=== PATIENT | female | born 1980 | race Caucasian/White ===

== ENCOUNTER → 2019-05-27 09:38 | Outpatient (BNVA) | payer MEDICAID, SELFPAY | PROVIDERS: Visit Provider Nurse Practitioner | DX: F31.2 Bipolar disorder, current episode manic severe with psychotic features (principal); F43.12 Post-traumatic stress disorder, chronic; F12.21 Cannabis dependence, in remission; F15.20 Other stimulant dependence, uncomplicated | CPT/HCPCS: 99214 ==

== ENCOUNTER 2019-09-09 18:33 | Emergency (ER) | payer MEDICAID, SELFPAY ==
[2019-09-09 18:40] VITALS: BMI 38.0
--- NOTE | 2019-09-09 18:42 | W.ED.FALL ---
HPI - Fall General: Chief Complaint: Fall Stated Complaint: R HIP INJURY/FALL Time Seen by Provider: 09/09/19 18:41 History of Present Illness: HPI Narrative: 39-year-old female comes to the emergency room after a fall yesterday injured her right hip and hyperextended her right knee is a mechanical fall at home she stumbled on some carpet. She did not strike her head did not have any other injuries and there was no loss of consciousness. She is had problems with the knee and hip in the past and is seen Dr. Castrejon she tells me that several years ago she had an MRI but denied any kind of surgical intervention. She reports having chronic pain for which he uses marijuana she said she smoked a half a joint of marijuana today did not seem to help she does not take another and any other anti-inflammatories. She has been weightbearing on the joints since this happened a day ago. MD complaint: fall Onset (ago): day(s) (1) Fall from: standing Fall witnessed: no Place fall occurred: home Loss of consciousness: None Prolonged down time: no Symptoms prior to fall: none Context: tripped/slipped Location of injury - extremities: Right: thigh (Right hip) and knee Severity: moderate Associated symptoms-after fall: Reports no associated symptoms; Denies abdominal pain or chest pain Review of Systems Const: Denies: fever(s), chills, body aches, change in appetite, fatigue or malaise ENMT: Denies: throat pain, ear or mastoid pain, nasal discharge or nasal congestion Card: Denies: chest pain, edema, dyspnea on exertion or orthopnea Resp: Denies: dyspnea, productive cough or non-productive cough GI: Denies: abdominal pain, nausea, vomiting, hematemesis, coffee ground emesis, diarrhea, constipation, bloating, hematochezia or melena : Denies: flank pain, difficulty voiding, dysuria, urinary frequency or urinary urgency Skin/Breast: Denies: rash or pruritus PFS ED PFSH: Medical History Bipolar disorder with psychotic features Bipolar disorder, current episode manic severe with psychotic features Cannabis dependence, in remission Greater trochanteric bursitis of both hips Other stimulant dependence, uncomplicated Post-traumatic stress disorder, chronic Social History Smoking and tobacco status: current every day smoker cigarettes Packs smoked per day: 1 Smoking risk assessment/counseling performed?: Yes Tobacco counseling given: counseling >3 minutes Physical Exam Const: COMMON NORMALS: no acute distress GENERAL APPEARANCE: cooperative and comfortable ORIENTATION/CONSCIOUSNESS: Yes awake, Yes oriented to person, Yes oriented to place and Yes oriented to time Neck/C-Spine: COMMON NORMALS: full ROM, no lymphadenopathy, supple and no JVD Lymph: LYMPHATIC: no lymphadenopathy noted and no lymphedema noted Resp: COMMON NORMALS: normal respiratory effort, No retractions, No use of accessory muscles and clear to auscultation bilaterally AUSCULTATION: clear to auscultation bilaterally Cardio: COMMON NORMALS: no JVD, regular rate, regular rhythm and No murmurs present (Cardio) RATE: regular rate RHYTHM: regular rhythm Extremity: COMMON NORMALS: normal to inspection, capillary refill normal, no clubbing, cyanosis or edema, no calf tenderness and no pedal edema NARRATIVE EXTREMITY EXAM: No ligamentous instability or laxity with examination of the right knee mild discomfort internal rotation of the right hip. Neuro: SENSORIUM/ORIENTATION: Yes oriented to person, Yes oriented to place and Yes oriented to time Skin: COMMON NORMALS: no rashes or lesions noted GENERAL SKIN EXAM: no rashes or lesions noted Course Vital Signs: Vital signs: Vital Signs Temperature 98.7 F 09/09/19 18:43 Pulse Rate 110 H 09/09/19 18:43 Respiratory Rate 16 09/09/19 18:43 Blood Pressure 117/92 09/09/19 18:43 Pulse Oximetry 94 09/09/19 18:43 MDM - Fall MDM Narrative: Medical decision making narrative: X-rays reviewed and are unremarkable patient is ambulating on this for a time already now I think will start on an anti-inflammatory have her follow-up with PCP or her primary care doctor if it worsens that she may need further evaluation or advanced imaging although exam now does not seem to indicate that. She expresses understanding she can also ice activity as tolerated. Discharge Plan Discharge Patient Disposition: Home, Self-Care Clinical Impression: Knee sprain Condition: Stable Prescriptions: New diclofenac sodium 75 mg tablet,delayed release (DR/EC) 75 mg PO Q12H PRN (Reason: pain) Qty: 20 RF: 0 No Action paliperidone [Invega] 6 mg tablet extended release 24hr 6 mg PO QAM Qty: 30 RF: 1 paroxetine HCl [Paxil] 10 mg tablet 20 mg PO .HS Qty: 60 RF: 1 nitroglycerin [Nitrostat] 0.4 mg tablet, sublingual 0.4 mg SUBLINGUAL Q5M PRN (Reason: CHEST PAINS) RF: 0 cholecalciferol (vitamin D3) 1,250 mcg (50,000 unit) capsule 50,000 unit PO .once weekly RF: 0 docusate sodium [Colace] 100 mg capsule 100 mg PO DAILY PRN (Reason: Constipation) RF: 0 Discharge Orders: Discharge Order (Routine); Ordered 09/09/19 Ordered By: Bharath Forbes Referrals: Denise Santana MD [Primary Care Provider] - Discharge Diet: Usual diet Discharge Activity: Increase activity as tolerated Activity Restrictions/Additional Instructions: Follow-up with Dr. Castrejon her primary care doctor if pain persists Coding Level of Care Code ED Senior Network Engineer for Chg Fwd Exam Detailed
[2019-09-09 18:43] VITALS: BP 117/92; PULSE 110; RESP 16; TEMP 37.1; O2SAT 94
--- NOTE | 2019-09-09 18:48 | XR_ITS ---
WS: [id number] RIGHT KNEE: 3 VIEW(S) TECHNIQUE: AP, oblique(s) and lateral. HISTORY: fall/pain COMPARISON: 04/09/2010 No fracture or dislocation. No joint space narrowing or osteophytes. No joint effusion. No soft tissue abnormality. XR/XR knee RT 3V* [id number] IMPRESSION: Normal RIGHT knee.
--- NOTE | 2019-09-09 18:48 | XR_ITS ---
WS: [id number] PELVIS AND RIGHT HIP HISTORY: fall/pain COMPARISON: 08/17/2015 Right hip: No acute fracture or dislocation. No interval change in appearance of the hip. No osteobla stic or osteolytic disease. AP pelvis with symmetric appearance of the SI joints and hips. XR/XR hip RT 2-3V wo/w pel* [id number] IMPRESSION: 1. Negative RIGHT hip. 2. Negative pelvis.
[2019-09-09] MEDS: ketorolac 30 mg/mL INJ 60 MG IVP (19:40)
[2019-09-09 19:46] VITALS: BP 124/73
--- NOTE | 2019-09-10 11:10 | DCPLANNER ---
assistant guest services manager had message to schedule a follow up appointment for patient with ortho. assistant guest services manager called the ortho clinic, spoke with Justine, gave clinic patients information. assistant guest services manager was told that patients information would be printed and reviewed. Clinic will call social work case manager and patient with appointment information.
--- NOTE | 2019-09-22 08:00 | DCPLANNER ---
Patient has a follow up appointment scheduled for Friday, September 27, 2019 at 1:[address] Ureña at the ortho clinic. Clinic will call patient with appointment information.
--- NOTE | 2019-10-01 14:29 | DCPLANNER ---
Patients appointment rescheduled for 10.04.19 with ortho.
--- NOTE | 2019-10-06 14:44 | DCPLANNER ---
Patient did not attend appointment scheduled for 10.04.19 with ortho.
== END 2019-09-09 19:51 | disposition home or self-care (01) ==
PROVIDERS: Emergency Provider Family Medicine; PCP Family Medicine
DX: S83.91XA Sprain of unspecified site of right knee, initial encounter (principal); W19.XXXA Unspecified fall, initial encounter; F17.210 Nicotine dependence, cigarettes, uncomplicated
CPT/HCPCS: 12345; 73502; 73562; 96374; 99281; 99283; J1885

== ENCOUNTER 2019-09-22 09:21 | Day surgery (SDC) | payer MEDICAID, SELFPAY ==
[2019-09-21 12:49] VITALS: BMI 36.6
[2019-09-22 09:28] VITALS: BP 135/80; PULSE 103; RESP 18; TEMP 37.2; O2SAT 96
[2019-09-22] MEDS: sodium chloride 0.9% 1,000 ML 30 ML IV (09:38)
--- NOTE | 2019-09-22 09:44 | ANES.PREANE2 ---
Pre-Anesthetic Assessment Pre-Anesthetic Assessment: Height/Weight: Height 1.55 m Weight 87.997 kg Temp Pulse Resp BP Pulse Ox 98.9 F 103 H 18 135/80 96 09/22/19 09:28 09/22/19 09:28 09/22/19 09:28 09/22/19 09:28 09/22/19 09:28 Preop Diagnosis: Umbilical hernia Proposed Procedure: Operation Date: 09/22/19 10:10 Proposed Procedures p Umbilical Hernia Repair 70989/K42.9(Not Applicable) - Archie Chiu MD Last intake: Intake Last Liquid Date 09/21/19 Last Liquid Time 23:00 Last Solid Date 09/21/19 Last Solid Time 19:00 Social: Social History: Tobacco (and MJ) Exam: Pre-Anes Outpt Exam: alert, oriented x 3, clear to auscultation bilaterally and regular rate & rhythm Airway: Submandibular: WNL Cervical ROM: WNL MP: 1 Dentition: Other (teeth ok. TMJ) History/ROS: No significant history except as noted Pulmonary: Pulmonary: COPD and XIAO CV/HEM: CV/HEM: None reported : : None reported Hepatic: Hepatic: None reported GI: GI: GERD (occ) Metabolic: Metabolic: None reported Musc/skel: Musc/skel: Lower Back Pain and OA/DJD Neuropsych: Neuropsych: Anxiety, Bipolar and Depression Anesthetic Plan: ASA status: 3 Anesthesia: Anesthesia Evaluation and General Risk of > 500 ml blood loss (7ml/kg in children): No Meds/Allergies Current Medications: Current Medications Generic Name Dose Route Start Last Admin Trade Name Freq PRN Reason Stop Dose Admin Sodium Chloride 1,000 mls @ 30 ml s/hr 09/22/19 09:30 09/22/19 09:38 Sodium Chloride 0.9% IV 09/23/19 09:29 30 mls/hr .Q24H ZULEYKA Administration PFSH Anesthesia PFSH: Medical History Bipolar disorder, current episode manic severe with psychotic features Greater trochanteric bursitis of both hips History of rectocele Other stimulant dependence, uncomplicated Post-traumatic stress disorder, chronic Prolapse of vaginal cuff after hysterectomy Surgical History S/P bladder repair 2011 S/P hysterectomy S/P LEEP of cervix 2002 Family History Brother Anesthesia complication nausea Sister Cancer cercical Grandmother Cancer esophageal Other Diabetes Denies family history of CAD (coronary artery disease) Bleeding disorder Social History Smoking and tobacco status: current every day smoker cigarettes Packs smoked per day: 1 Smoking risk assessment/counseling performed?: Yes Tobacco counseling given: counseling >3 minutes Alcohol intake: current Alcohol intake frequency: other Lives independently: Yes Marital status: Single Current occupational status: unemployed History of recent travel: No Data Anesthesia Cardiac Studies: No Data to Display
--- NOTE | 2019-09-22 09:49 | W.PM.OPSUD ---
Surgery/Procedure H&P Update DATE OF PROCEDURE: September 22, 2019 DATE H&P PERFORMED: 09/20/19 H&P UPDATE INFORMATION: I have reviewed H&P completed within last 30 days, I have examined patient prior to procedure and No changes to prior documentation PREOP DIAGNOSIS: Umbilical hernia PLANNED PROCEDURE: Operation Date: 09/22/19 10:10 Proposed Procedures p Umbilical Hernia Repair 09997/K42.9(Not Applicable) - Archie Chiu MD
[2019-09-22] MEDS: scopolamine 1.5 Patch 1 PATCH TRANSDERMA (09:51)
[2019-09-22 10:42] VITALS: BP 103/77; PULSE 83; RESP 20; TEMP 36.8; O2SAT 98
--- NOTE | 2019-09-22 10:47 | PM.OP ---
Operative Report Date of procedure: September 22, 2019 Pre-op Diagnosis: Umbilical hernia Post-op Findings: Incarcerated umbilical hernia containing omentum with defect measuring 1 cm Procedure Done: Open primary repair of umbilical hernia Pathology: none sent Surgeon: Archie Chiu Anesthesia: General Estimated blood loss (mL): 5 Condition: stable Disposition: PACU Procedure: The patient was taken to the operating room and intubated under general anesthesia after IV antibiotic had been administered. The abdomen was prepped and draped in a sterile manner. A 2 cm suprraumbilical longitudinal incision was made using a 15 blade, a hernial sac dissected out using electrocautery and dissection with hemostats. The hernial sac was opened and omentum was reduced into the peritoneal cavity. Interrupted sutures using 0 Vicryl was used to close the hernial defect without any tension. The subcutaneous tissue was approximated using 3-0 Vicryl and skin was closed using running subcuticular 4-0 Monocryl sutures. Dermabond was then applied and 10 mL of 0.5% Marcaine was infiltrated around the incision. The patient was stable throughout the procedure.
[2019-09-22 10:50] VITALS: BP 109/78; PULSE 88; RESP 20; O2SAT 97
[2019-09-22 10:55] VITALS: BP 123/70; PULSE 84; RESP 18; TEMP 36.8; O2SAT 99
[2019-09-22 11:00] VITALS: BP 116/79; PULSE 92; RESP 18; TEMP 36.6; O2SAT 97
[2019-09-22 11:25] VITALS: BP 116/82; PULSE 80; RESP 18; O2SAT 95
== END 2019-09-22 11:55 | disposition home or self-care (01) ==
PROVIDERS: PCP Family Medicine; Visit Provider Surgery
PROC: (CPT 49587; principal; 2019-09-22 10:10)
DX: K42.0 Umbilical hernia with obstruction, without gangrene (principal); F17.210 Nicotine dependence, cigarettes, uncomplicated; J44.9 Chronic obstructive pulmonary disease, unspecified; K21.9 Gastro-esophageal reflux disease without esophagitis
CPT/HCPCS: 49587; 12345; J0690; J1100; J1885; J2001; J2405; J2704; J2710; J3010; J3490; J7030

== ENCOUNTER → 2019-10-15 16:41 | Outpatient (BNVA) | payer MEDICAID, SELFPAY | PROVIDERS: PCP Family Medicine; Visit Provider Family Medicine | DX: F31.2 Bipolar disorder, current episode manic severe with psychotic features (principal); E55.9 Vitamin D deficiency, unspecified; Z86.39 Personal history of other endocrine, nutritional and metabolic disease; F43.12 Post-traumatic stress disorder, chronic | CPT/HCPCS: 80053; 82306; 84443; 85025 ==

== ENCOUNTER → 2019-10-28 08:32 | Outpatient (BNVA) | payer MEDICAID, SELFPAY | PROVIDERS: PCP Family Medicine; Visit Provider Nurse Practitioner | DX: F43.12 Post-traumatic stress disorder, chronic (principal); F15.21 Other stimulant dependence, in remission; F31.2 Bipolar disorder, current episode manic severe with psychotic features | CPT/HCPCS: 99214 ==

== ENCOUNTER → 2019-11-24 13:26 | Outpatient (BNVA) | payer MEDICAID, SELFPAY | PROVIDERS: PCP Family Medicine; Visit Provider Nurse Practitioner | DX: F31.2 Bipolar disorder, current episode manic severe with psychotic features (principal); Z79.899 Other long term (current) drug therapy; F41.1 Generalized anxiety disorder | CPT/HCPCS: 96372; 99214 ==

== ENCOUNTER → 2020-01-07 11:20 | Outpatient (BNVA) | payer MEDICAID, SELFPAY | PROVIDERS: PCP Family Medicine; Visit Provider Obstetrics & Gynecology | DX: Z20.2 Contact with and (suspected) exposure to infections with a predominantly sexual mode of transmission (principal) | CPT/HCPCS: 86592; 86706; 86803; 87340; 87491; 87591; 87806 ==

== ENCOUNTER → 2020-01-18 07:43 | Outpatient (BNVA) | payer MEDICAID, SELFPAY | PROVIDERS: PCP Family Medicine; Visit Provider Nurse Practitioner | DX: F31.2 Bipolar disorder, current episode manic severe with psychotic features (principal); F15.20 Other stimulant dependence, uncomplicated; F12.20 Cannabis dependence, uncomplicated | CPT/HCPCS: 99213 ==

== ENCOUNTER → 2020-04-10 11:57 | Outpatient (BNVA) | payer MEDICAID, SELFPAY | PROVIDERS: PCP Family Medicine; Visit Provider Nurse Practitioner Family | DX: M79.672 Pain in left foot (principal); E55.9 Vitamin D deficiency, unspecified; R63.1 Polydipsia; H91.93 Unspecified hearing loss, bilateral; M54.41 Lumbago with sciatica, right side; G89.29 Other chronic pain | CPT/HCPCS: 73630; 80053; 82306; 82607; 83036; 84439; 84443; 84481; 85025 ==

== ENCOUNTER → 2020-04-21 13:04 | Outpatient (BNVA) | payer MEDICAID, SELFPAY | PROVIDERS: PCP Family Medicine; Visit Provider Nurse Practitioner | DX: F31.2 Bipolar disorder, current episode manic severe with psychotic features (principal); F43.12 Post-traumatic stress disorder, chronic; F15.21 Other stimulant dependence, in remission | CPT/HCPCS: 99214 ==

== ENCOUNTER → 2020-05-19 14:15 | Outpatient (BNVA) | payer MEDICAID, SELFPAY | PROVIDERS: PCP Family Medicine; Visit Provider Nurse Practitioner | DX: F31.2 Bipolar disorder, current episode manic severe with psychotic features (principal) | CPT/HCPCS: 96372; 99214 ==

== ENCOUNTER → 2020-05-26 14:20 | Outpatient (BNVA) | payer MEDICAID, SELFPAY | PROVIDERS: PCP Family Medicine; Visit Provider Nurse Practitioner | DX: F31.2 Bipolar disorder, current episode manic severe with psychotic features (principal); F15.21 Other stimulant dependence, in remission; F12.20 Cannabis dependence, uncomplicated | CPT/HCPCS: 96372; 99214 ==

== ENCOUNTER → 2020-06-15 09:47 | Outpatient (BNVA) | payer MEDICAID, SELFPAY | PROVIDERS: PCP Family Medicine; Visit Provider Nurse Practitioner Family | DX: E55.9 Vitamin D deficiency, unspecified (principal) | CPT/HCPCS: 82306 ==

== ENCOUNTER → 2020-06-26 13:45 | Outpatient (BNVA) | payer MEDICAID, SELFPAY | PROVIDERS: PCP Family Medicine; Visit Provider Nurse Practitioner | DX: F31.2 Bipolar disorder, current episode manic severe with psychotic features (principal); F43.12 Post-traumatic stress disorder, chronic | CPT/HCPCS: 96372; 99214 ==

== ENCOUNTER → 2020-07-04 14:16 | Outpatient (BNVA) | payer MEDICAID, SELFPAY | PROVIDERS: PCP Family Medicine; Visit Provider Orthopaedic Surgery | DX: M54.41 Lumbago with sciatica, right side (principal); G89.29 Other chronic pain | CPT/HCPCS: 72110 ==

== ENCOUNTER → 2020-07-25 13:43 | Outpatient (BNVA) | payer MEDICAID, SELFPAY | PROVIDERS: PCP Family Medicine; Visit Provider Nurse Practitioner | DX: F31.2 Bipolar disorder, current episode manic severe with psychotic features (principal); F43.12 Post-traumatic stress disorder, chronic; F12.20 Cannabis dependence, uncomplicated; F15.21 Other stimulant dependence, in remission | CPT/HCPCS: 96372; 99214 ==

== ENCOUNTER 2020-07-31 15:34 | Outpatient (CLI) | payer MEDICAID, SELFPAY ==
--- NOTE | 2020-07-31 16:03 | MR_ITS ---
WS: [id number] Exam: MR lumbar spine wo con* [id number] Date/Time of Exam: 07/31/2020 4:10 PM Reason For Exam: M48.061 - Spinal stenosis, lumbar region without neurogenic claudication The lumbar spine is evaluated in the sagittal and axial planes with multiple imaging sequences. There was no sign of bulging or herniated disc. The neural foramina are patent at all levels. The con us medullaris and cauda equina appear normal. Mild facet DJD. Paraspinal and retroperitoneal soft tis sues appear normal. Mild disc desiccation at L4-5 and L5-S1. MR/MR lumbar spine wo con* [id number] IMPRESSION: 1. No evidence of disc herniation or spinal canal stenosis. No foraminal stenos is. 2. Mild degenerative disc changes at L4-5 and L5-S1. Mild facet DJD.
== END 2020-07-31 15:35 | disposition home or self-care (01) ==
PROVIDERS: PCP Family Medicine; Visit Provider Orthopaedic Surgery
DX: M48.061 Spinal stenosis, lumbar region without neurogenic claudication (principal); M47.816 Spondylosis without myelopathy or radiculopathy, lumbar region
CPT/HCPCS: 72148

== ENCOUNTER → 2020-08-15 09:00 | Outpatient (BNVA) | payer MEDICAID, SELFPAY | PROVIDERS: PCP Family Medicine; Referring Provider Orthopaedic Surgery; Visit Provider Anesthesiology Pain Medicine | DX: M47.816 Spondylosis without myelopathy or radiculopathy, lumbar region (principal); M48.062 Spinal stenosis, lumbar region with neurogenic claudication; M79.604 Pain in right leg; F17.210 Nicotine dependence, cigarettes, uncomplicated | CPT/HCPCS: 99214 ==

== ENCOUNTER → 2020-08-17 09:21 | Outpatient (BNVA) | payer MEDICAID, SELFPAY | PROVIDERS: PCP Family Medicine; Visit Provider Nurse Practitioner Family | DX: N39.0 Urinary tract infection, site not specified (principal); Z11.3 Encounter for screening for infections with a predominantly sexual mode of transmission | CPT/HCPCS: 81003; 87077; 87086; 87184; 87491; 87591; 87661 ==

== ENCOUNTER → 2020-08-21 10:44 | Outpatient (BNVA) | payer MEDICAID, SELFPAY | PROVIDERS: PCP Family Medicine; Visit Provider Nurse Practitioner | DX: F31.2 Bipolar disorder, current episode manic severe with psychotic features (principal); F43.12 Post-traumatic stress disorder, chronic; F31.81 Bipolar II disorder; F12.20 Cannabis dependence, uncomplicated; F15.21 Other stimulant dependence, in remission | CPT/HCPCS: 99214 ==

== ENCOUNTER → 2020-08-22 13:35 | Outpatient (BNVA) | payer MEDICAID, SELFPAY | PROVIDERS: PCP Family Medicine; Visit Provider Anesthesiology Pain Medicine | DX: M48.062 Spinal stenosis, lumbar region with neurogenic claudication (principal); M54.16 Radiculopathy, lumbar region; F17.210 Nicotine dependence, cigarettes, uncomplicated | CPT/HCPCS: 64483; 64484; J1100; J3490 ==

== ENCOUNTER → 2020-10-13 08:59 | Outpatient (BNVA) | payer MEDICAID, SELFPAY | PROVIDERS: PCP Family Medicine; Visit Provider Orthopaedic Surgery | DX: Z11.52 Encounter for screening for COVID-19 (principal) | CPT/HCPCS: 87635 ==

== ENCOUNTER → 2020-10-17 13:52 | Outpatient (BNVA) | payer MEDICAID, SELFPAY | PROVIDERS: PCP Family Medicine; Visit Provider Nurse Practitioner | DX: F43.12 Post-traumatic stress disorder, chronic (principal); F31.2 Bipolar disorder, current episode manic severe with psychotic features; F12.21 Cannabis dependence, in remission; F15.21 Other stimulant dependence, in remission | CPT/HCPCS: 99214 ==

== ENCOUNTER 2020-10-18 13:24 | Day surgery (SDC) | payer MEDICAID, SELFPAY ==
[2020-10-16 10:08] VITALS: BMI 37.8
--- NOTE | 2020-10-16 10:58 | P.ANESASSM_ITS ---
Pre-Anesthetic Assessment Pre-Anesthetic Assessment: Height/Weight: Height 1.55 m Weight 90.718 kg Preop Diagnosis: lumbar stenosis Proposed Procedure: Operation Date: 10/18/20 14:45 Proposed Procedures p Lumbar Spine Decompression [id number] M48.062(Not Applicable) - Juanito Forrest, DO Was Beta Nel taken within 24 hours: N/A Was Clonidine taken within 24 hours: N/A Social: Social History: Tobacco and No alcohol Comment: Meth use, joe use Exam: Pre-Anes Outpt Exam: alert, oriented x 3 and regular rate & rhythm Airway: Submandibular: WNL Cervical ROM: WNL MP: 2 Dentition: Chipped, Loose and False (lower arch) Additional comments: poor dentition Pulmonary: Pulmonary: Cough Metabolic: Metabolic: Morbid obesity and Thyroid Musc/skel: Musc/skel: Lower Back Pain Neuropsych: Neuropsych: Anxiety and Depression Anesthetic Plan: ASA status: 3 Anesthesia: General Risk of > 500 ml blood loss (7ml/kg in children): No PFSH Anesthesia PFSH: Medical History Bipolar disorder, current episode manic severe with psychotic features Bipolar II disorder Cannabis dependence, uncomplicated Chronic obstructive pulmonary disease Greater trochanteric bursitis of both hips History of thyroid disorder Reports had been on medication in the past On high dose antipsychotic drug therapy Other stimulant dependence, in remission Other stimulant dependence, in remission Other stimulant dependence, uncomplicated Post-traumatic stress disorder, chronic Surgical History H/O total vaginal hysterectomy (11/01/14) TVH with uterosacral ligament suspension. Performed by Dr. Mancini at [facility] in [place], [place] H/O vaginal surgery (02/20/12) Posterior colporrhaphy. Performed by Dr. Zambrano and Dr. Mancini at [facility] in [place], [place] H/O vaginal surgery (07/18/11) Anterior colporrhaphy, Single incision sling. Performed by Dr. Zambrano and Dr. Mancini at [facility] in [place], [place] History of umbilical hernia repair (09/22/[address]) [address] Chiu at [facility] in [place], [place] S/P cone biopsy of cervix (~2002) Vaginal cuff dehiscence (05/01/15) Repair of vaginal cuff dehiscence. DX: Vaginal cuff dehiscence with small bowel evisceration into vagina. Performed by Dr. Mancini at [facility] in [place], [place]. Family History Brother Anesthesia complication nausea Grandmother Cancer esophageal Other Diabetes Social History Smoking and tobacco status: current every day smoker cigarettes Packs smoked per day: 1 Years cigarettes smoked: 20 Second hand smoke exposure: No Smoking risk assessment/counseling performed?: Yes Tobacco counseling given: counseling >3 minutes Alcohol intake: current Alcohol intake frequency: other Lives independently: Yes Marital status: Single Current occupational status: unemployed History of recent travel: No Current gender identity: Female Data Anesthesia Cardiac Studies: No Data to Display
[2020-10-18] VITALS (8 sets, daily range): BP systolic 112–140; BP diastolic 66–92; PULSE 50–73; RESP 11–22; TEMP 36.1–36.6; O2SAT 94–100
--- NOTE | 2020-10-18 | XR_ITS ---
WS: [id number] Lumbar spine, C-arm fluoroscopy view, 10/18/2020 Clinical Data: [facility] PICS Comparison: Lumbar spine, 07/04/2020. Findings: Dr. Forrest performed lumbar decompression at L4-L5. XR/XR lumbar spine 1V [id number] Impression: Lumbar decompression.
--- NOTE | 2020-10-18 | SCC_ITS ---
Procedure: 1. L4/5 Bilateral laminectomy with partail facetectomies 9.7 seconds of fluoroscopic guidance, for a cumulative dose of 2.87 mGy, was provided to Dr. Forrest by the radiology department. C-arm images of the lumbar spine were saved for the patient's permanent record. [facility]
[2020-10-18] MEDS: sodium chloride 0.9% 1,000 ML 30 ML IV (14:16)
--- NOTE | 2020-10-18 14:37 | W.PM.OPSUD ---
Surgery/Procedure H&P Update DATE OF PROCEDURE: October 18, 2020 DATE H&P PERFORMED: 09/20/19 H&P UPDATE INFORMATION: I have reviewed H&P completed within last 30 days, I have examined patient prior to procedure and No changes to prior documentation PREOP DIAGNOSIS: lumbar stenosis PLANNED PROCEDURE: Operation Date: 10/18/20 15:15 Proposed Procedures p Lumbar Spine Decompression 65349 M48.062(Not Applicable) - Juanito Forrest DO
[2020-10-18] MEDS: scopolamine 1.5 Patch 1 PATCH TRANSDERMA (14:52)
--- NOTE | 2020-10-18 15:17 | P.ANESUD_ITS ---
Pre-Anesthetic Update Pre-Anesthetic Assessment: Date of Surgery/Procedure: 10/18/20 Preop Apple gnosis: lumbar stenosis Proposed Procedure: Operation Date: 10/18/20 15:15 Proposed Procedures p Lumbar Spine Decompression 12435 M48.062(Not Applicable) - Juanito Forrest, DO Any changes to Pre-Anesthetic Assessment?: No Last Intake: Intake Last Liquid Date 10/18/20 Last Liquid Time 09:00 Last Solid Date 10/17/20 Vitals: Temperature 97.7 F 10/18/20 14:00 Pulse Rate 73 10/18/20 14:00 Respiratory Rate 18 10/18/20 14:00 Blood Pressure 124/76 10/18/20 14:00 Blood Pressure Rachna n 92 10/18/20 14:00 Pulse Oximetry 95 10/18/20 14:00 Oxygen Delivery Me thod 10/18/20 14:00 Exam: Pre-Anes Outpt Exam: alert, oriented x 3, clear to auscultation bilaterally and regular rate & rhythm Cardiac Studies: No Data to Display
--- NOTE | 2020-10-18 16:31 | P.OP_ITS ---
Operative Report Date of procedure: October 18, 2020 Pre-op Diagnosis: lumbar stenosis Post-op diagnosis: same Procedure Done: 1. L4/5 Bilateral laminectomy with partail facetectomies Anesthesia: General Estimated blood loss (mL): 5 Condition: stable Disposition: PACU Procedure: 1. L4/5 Bilateral laminectomy with partail facetectomies Patient is brought to the operative suite. After undergoing anesthesia they are placed in the supine position. All areas of impingement are well padded. Patien t is then prepped and draped in the normal sterile fashion. A skin incision is made over the L4/5 level counting from the top. This is confirmed under c-arm guidance. A series of dilators are passed and the tubular retractor is docked on the L4 lamina. A bovie is used to clear the soft tissue off the lamina and the L 4/5 facet joint. A high speed casey is then used to perform the laminectomy and take down the medial aspect of the L 4/5 facet joint. A kerrison rongeure was then used to take down the remaining lamina and smooth the edged of the laminectomy up to the point where the ligamentum flavum attaches. Attention was then brought to the medial aspect of the facet joint. The remaining medial aspect of the superior and inferior aspect of the facet joint were taken down with the kerrison from the pedicle of L4 to L 5. The facet joint had significant hypertrophy. Attention was then brought to the Ligamentum Flavum. The ligament was taken down from the lamina of L4 to L5 and out medially to the remaining facet joint. The ligament was thick. The dura was then exposed. The dura was in good repair. The L4 nerve was then traced with a curette out the L4/5 foramen and found to be adequately decompressed. The L5 nerve was traced with a curette around the L5 pedicle. The lateral recess was opened with a kerrison helping to further decompress the L5 nerve. The tubular retractor was then tilted to the contralateral side. The bovie was used to take down the soft tissue on the spinous process. The high speed casey was used to take down the spinous process and then the contralateral lamina of L4. The kerrison rongeur was used to take down the remaining lamina to the point where the ligamentum flavum attached and the ligamentum flavum was taken down from L4 to L5. The kerrison rongeur was then used to reach across and take down the medial aspect of the contralateral L4/5 facet joint.The currete was used to trace the contralateral L4 nerve out the L4/5 foramen to make sure it was decompressed adequatesly and the L5 was traced around the L5 pedicle. The lateral recess was opened further with the kerrison to ensure the L5 is adequately decompressed. Wound is then irrigated copiously with saline and surgiflo is used to stop any bleeding. The tubular retractor is removed and the wound is closed with vicryl and monocryl suture. Glue is then used to protect the wound. A sterile dressing is then placed. Patient was then placed in the supine position and transferred to the PACU in stable condition.
[2020-10-18] MEDS: HYDROmorphone 1 mg/mL INJ 1 mL 0.5 MG IVP ×2 (16:36→16:46)
--- NOTE | 2020-10-18 16:39 | P.PCN_ITS ---
Documented by User: Leonel Stuart CRNA 10/18/20 16:39 PACU note PACU note: VSS, Good respiratory effort, report to SUPPLY CHAIN DESIGN MANAGER Post-Anesthesia Exam: awake
--- NOTE | 2020-10-18 16:39 | PM.PACU ---
Documented by User: Leonel Stuart CRNA 10/18/20 16:39 PACU note PACU note: VSS, Good respiratory effort, report to HIGH SCALER Post-Anesthesia Exam: awake
--- NOTE | 2020-10-19 11:43 | PM.HP ---
Providers/Chief Complaint Primary Care Provider: Denise Sanatna MD Chief Complaint: decompression History of Present Illness Nadia Cuevas is a 40 year old femalelow back pain. She states at times she has to use a walker due to pain. Chief Complaint: low back pain Onset: years Duration: years Characteristics: dull, throbbing, stabbing Severity: 09/14 Location: low back Radiating symptoms: bilateral hips with the right being worse, Aggravating factors: standing for long periods, stats when she does dishes her back will hurt, sweeping, mopping bathing her daughter, walking for long periods Alleviating factors: rest Neuro deficits: denies numbness, tingling, weakness, incontinence of bowel/bladder, saddle anesthesia. Prior tx: She was instructed to preform at home exercises. Review of Systems Narrative: eneral ROS: negative for weight changes, fever ENT ROS: negative for nasal congestion, drainage or bleeding, sore throat, dysphagia or ear pain Eyes: PERRL Hematological and Lymphatic ROS: negative for swollen glands or abnormal bleeding Endocrine ROS: negative for polyuria/polydpsia or new changes in weight Respiratory ROS: negative for cough, shortness of breath, or wheezing Cardiovascular ROS: negative for chest pain or dyspnea on exertion Gastrointestinal ROS: negative for reflux, abdominal pain, change in bowel habits, or black or bloody stools Musculoskeletal ROS: negative for back pain, neck pain, or joint pain or swelling except for current problem Neurological ROS: negative for TIA or stoke symptoms Skin: no rashes Medications/Allergies Home Medications Medication Instructions Recorded Confirmed Last Taken Type docusate sodium 100 mg capsule 100 mg PO BID PRN cap 01/07/20 10/18/20 10/17/20 History ergocalciferol (vitamin D2) 1,250 1,250 mcg PO .weekly #12 cap 06/16/20 10/18/20 10/17/20 Rx mcg (50,000 unit) capsule varenicline 1 mg tablet See Rx Instructions .ROUTE 06/16/20 10/18/20 10/18/20 Rx .COMPLEX #56 tab albuterol sulfate 90 mcg/actuation See Rx Instructions .ROUTE 06/29/20 10/18/20 10/17/20 Rx aerosol inhaler .COMPLEX #8.5 g hydrocodone-acetaminophen 1 - 2 tab PO .Q4-6H #40 tab 10/18/20 Unknown Rx Allergies Allergy/AdvReac Type Severity Reaction Status Date / Time paliperidone [From Invega] Allergy Intermediate makes her Verified 10/18/20 13:58 eyes blink extra adhesive tape Allergy ALGY-Bliste Verified 10/18/20 13:58 r Iodinated Contrast Media Allergy airway Verified 10/18/20 13:58 ziprasidone [From Geodon] AdvReac ADR-Shakine Verified 10/18/20 13:58 ss PFSH Acute PFSH: Medical History Bipolar disorder, current episode manic severe with psychotic features Bipolar II disorder Cannabis dependence, uncomplicated Chronic obstructive pulmonary disease Greater trochanteric bursitis of both hips History of thyroid disorder Reports had been on medication in the past On high dose antipsychotic drug therapy Other stimulant dependence, in remission Other stimulant dependence, in remission Other stimulant dependence, uncomplicated Post-traumatic stress disorder, chronic Surgical History H/O total vaginal hysterectomy (11/01/14) TVH with uterosacral ligament suspension. Performed by Dr. Mancini at [facility] in [place], [place] H/O vaginal surgery (02/20/12) Posterior colporrhaphy. Performed by Dr. Zambrano and Dr. Mancini at [facility] in [place], [place] H/O vaginal surgery (07/18/11) Anterior colporrhaphy, Single incision sling. Performed by Dr. Zambrano and Dr. Mancini at [facility] in [place], [place] History of umbilical hernia repair (09/22/19) Performed by Dr. Chiu at [facility] in [place], [place] S/P cone biopsy of cervix (~2002) Vaginal cuff dehiscence (05/01/15) Repair of vaginal cuff dehiscence. DX: Vaginal cuff dehiscence with small bowel evisceration into vagina. Performed by Dr. Mancini at [facility] in [place], [place]. Family History Brother Anesthesia complication nausea Grandmother Cancer esophageal Other Diabetes Social History Smoking and tobacco status: current every day smoker cigarettes Packs smoked per day: 1 Years cigarettes smoked: 20 Second hand smoke exposure: No Smoking risk assessment/counseling performed?: Yes Tobacco counseling given: counseling >3 minutes Alcohol intake: current Alcohol intake frequency: other Lives independently: Yes Marital status: Single Current occupational status: unemployed History of recent travel: No Current gender identity: Female Vitals/I&O/Wt Last Vital Signs Temp 97.8 F 10/18/20 16:50 Pulse 50 L 10/18/20 17:10 Resp 18 10/18/20 17:10 BP 124/71 10/18/20 17:10 Pulse Ox 94 10/18/20 17:10 10/18/20 10/19/20 10/19/20 22:59 06:59 14:59 Intake Total 1050 / 1050 Output Total Balance 1045 / 1045 Physical Exam Narrative: EXAM NARRATIVE: CONSTITUTIONAL: The patient is a normal appearing [] in no apparent distress. GENERAL: Patient in no acute distress. CARDIAC: Regular rate and rhythm. CHEST: Normal inspiratory effort, normal respiratory rate. ABDOMEN: Soft and nontender. SKIN: Clear, warm and intact. NEURO?PSYCH: The patient is alert and oriented to person, place and time. Sensorv /SILT Motor StrengthShoulder abduction C5 5/5Wrist extension C6 5/5Elbow extension C7 5/5Hand Digital Intern C8 5/5Finger abduction T15/5 Radial/ Ulnar/ Median n intact LowerSensory (SILT)Motor StrengthHin flexion L2/3Ant/inner thigh 5/5Hip adduction L2/3 5/5Knee extension L4 Lat thigh, 5/5Toe dorsiflexion L5 5/5Ankle dorsiflexion L5/ B86Shitazi flexion S1 5/5 DTRBleeps 2+Triceps 2+Brachioradialis 2+Patellar 2+Achilles 2+ MUSCULOSKELETAL: [] UPPEREXTREMITIES: The patient had full active ROM in fingers, wrist, elbow, and shoulder. The patient demonstrated ability to fully flex/extend/abduct/adduct fingers, make ok sign, cross 2nd/3rd digits, extend 1st digit fully.. Radial pulse 2+, CR<2 seconds. LOWER EXTREMITIES: Pt has full, active ROM of toes, ankle, knee, and hip. Dorsalis pedis/posterior tibialis pulses 2+, CR<2 seconds. SPINE: Skin warm, dry, intact. A&P Assessment and plan (1) Lumbar stenosis with neurogenic claudication: MIS decompression Status: Acute Attestations Medical Necessity Statement*: Failed conservative therapy Coding Level of Care Code Acute Hydraulic Assembler for Chg Fwd Diagnoses Lumbar stenosis with neurogenic claudication M48.062
== END 2020-10-18 17:20 | disposition home or self-care (01) ==
PROVIDERS: PCP Family Medicine; Visit Provider Orthopaedic Surgery
PROC: (CPT 63005; principal; 2020-10-18 14:55)
DX: M48.062 Spinal stenosis, lumbar region with neurogenic claudication (principal); E66.01 Morbid (severe) obesity due to excess calories; Z68.37 Body mass index [BMI] 37.0-37.9, adult; F31.81 Bipolar II disorder; F17.210 Nicotine dependence, cigarettes, uncomplicated
CPT/HCPCS: 63047; 72020; 76000; J0690; J1100; J1170; J1200; J2405; J2704; J2710; J3010; J3490; J7030

== ENCOUNTER 2020-10-29 13:07 | Emergency (ER) | payer MEDICAID, SELFPAY ==
[2020-10-29 13:34] VITALS: BP 119/80; PULSE 76; RESP 19; TEMP 37.1; O2SAT 95; BMI 39.2
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
[2020-10-29 13:56] VITALS: BP 137/95; PULSE 81; RESP 16; O2SAT 96
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
[2020-10-29 14:40] VITALS: BP 125/61; PULSE 78; RESP 18; O2SAT 97
== END 2020-10-29 14:47 | disposition home or self-care (01) ==
PROVIDERS: Emergency Provider Nurse Practitioner Family; PCP Family Medicine
DX: M54.2 Cervicalgia (principal); M54.9 Dorsalgia, unspecified; J44.9 Chronic obstructive pulmonary disease, unspecified; F17.210 Nicotine dependence, cigarettes, uncomplicated
CPT/HCPCS: 72040; 72100; 99282

== ENCOUNTER → 2020-11-16 07:49 | Outpatient (BNVA) | payer MEDICAID, SELFPAY | PROVIDERS: PCP Family Medicine; Visit Provider Nurse Practitioner | DX: F31.81 Bipolar II disorder (principal); F15.21 Other stimulant dependence, in remission; F43.12 Post-traumatic stress disorder, chronic; F12.20 Cannabis dependence, uncomplicated | CPT/HCPCS: 99214 ==

== ENCOUNTER → 2020-12-28 10:51 | Outpatient (BNVA) | payer MEDICAID, SELFPAY | PROVIDERS: PCP Family Medicine; Visit Provider Otolaryngology | DX: J35.01 Chronic tonsillitis (principal); Z20.822 Contact with and (suspected) exposure to COVID-19 | CPT/HCPCS: 87635 ==

== ENCOUNTER → 2021-01-18 10:24 | Outpatient (BNVA) | payer MEDICAID, SELFPAY | PROVIDERS: PCP Family Medicine; Visit Provider Orthopaedic Surgery | DX: M54.2 Cervicalgia (principal) | CPT/HCPCS: 72040 ==

== ENCOUNTER → 2021-03-19 12:46 | Outpatient (BNVA) | payer MEDICAID, SELFPAY | PROVIDERS: PCP Family Medicine; Visit Provider Nurse Practitioner | DX: F31.81 Bipolar II disorder (principal); F43.12 Post-traumatic stress disorder, chronic; F15.21 Other stimulant dependence, in remission; F12.20 Cannabis dependence, uncomplicated | CPT/HCPCS: 99214 ==

== ENCOUNTER → 2021-03-20 12:08 | Outpatient (BNVA) | payer MEDICAID, SELFPAY | PROVIDERS: PCP Family Medicine; Visit Provider Nurse Practitioner Family | DX: R11.0 Nausea (principal); R11.10 Vomiting, unspecified; R53.83 Other fatigue; R10.9 Unspecified abdominal pain; K58.9 Irritable bowel syndrome, unspecified; F15.21 Other stimulant dependence, in remission; F12.20 Cannabis dependence, uncomplicated; E03.9 Hypothyroidism, unspecified | CPT/HCPCS: 80053; 82150; 82306; 82607; 82746; 83690; 83735; 84443; 86705; 86706; 86709; 86803; 87340 ==

== ENCOUNTER → 2021-03-21 09:40 | Outpatient (BNVA) | payer MEDICAID, SELFPAY | PROVIDERS: PCP Family Medicine; Referring Provider Orthopaedic Surgery; Visit Provider Anesthesiology Pain Medicine | DX: G89.29 Other chronic pain (principal); M47.816 Spondylosis without myelopathy or radiculopathy, lumbar region; M96.1 Postlaminectomy syndrome, not elsewhere classified; M79.604 Pain in right leg | CPT/HCPCS: 99214 ==

== ENCOUNTER → 2021-03-23 13:30 | Outpatient (BNVA) | payer MEDICAID, SELFPAY | PROVIDERS: PCP Family Medicine; Visit Provider Nurse Practitioner Family | DX: K52.9 Noninfective gastroenteritis and colitis, unspecified (principal); R10.9 Unspecified abdominal pain; R11.0 Nausea; R11.10 Vomiting, unspecified | CPT/HCPCS: 87177; 87209 ==

== ENCOUNTER → 2021-04-10 14:33 | Outpatient (BNVA) | payer MEDICAID, SELFPAY | PROVIDERS: PCP Family Medicine; Visit Provider Anesthesiology Pain Medicine | DX: M54.16 Radiculopathy, lumbar region (principal) | CPT/HCPCS: 64483; 64484; J1100; J3490 ==

== ENCOUNTER → 2021-04-13 12:02 | Outpatient (BNVA) | payer MEDICAID, SELFPAY | PROVIDERS: PCP Family Medicine; Visit Provider Otolaryngology | DX: Z11.52 Encounter for screening for COVID-19 (principal) | CPT/HCPCS: 87635 ==

== ENCOUNTER 2021-04-19 06:50 | Day surgery (SDC) | payer MEDICAID, SELFPAY ==
[2021-04-18 09:35] VITALS: BMI 36.8
[2021-04-19] VITALS (9 sets, daily range): BP systolic 105–127; BP diastolic 65–88; PULSE 59–92; RESP 14–18; TEMP 36.4–37.1; O2SAT 91–100
[2021-04-19] MEDS: sodium chloride 0.9% 1,000 ML 30 ML IV (08:03)
--- NOTE | 2021-04-19 08:06 | ANES.PREANE2 ---
Pre-Anesthetic Assessment Pre-Anesthetic Assessment: Height/Weight: Height 1.55 m Weight 88.451 kg Temp Pulse Resp BP Pulse Ox 97.8 F 76 16 105/82 96 04/19/21 07:28 04/19/21 07:28 04/19/21 07:28 04/19/21 07:28 04/19/21 07:28 Preop Diagnosis: Chronic tonsillitis with recurrent tonsil stones hypertrophy and bleeding Proposed Procedure: Operation Date: 04/19/21 08:35 Proposed Procedures p Tonsillectomy 75064 J35.01(Not Applicable) - Tyler Martinez MD Familial anesthetic complications: PONV Was Beta Nel taken within 24 hours: N/A Was Clonidine taken within 24 hours: N/A Last intake: Intake Last Liquid Date 04/18/21 Last Liquid Time 22:45 Last Solid Date 04/18/21 Last Solid Time 22:30 Social: Social History: Tobacco Exam: Pre-Anes Outpt Exam: alert, oriented x 3, clear to auscultation bilaterally and regular rate & rhythm Airway: Submandibular: WNL Cervical ROM: WNL MP: 2 Dentition: Chipped and Loose Additional comments: Patient states all upper teeth loose Pulmonary: Pulmonary: COPD Comments: Hypersomnia CV/HEM: CV/HEM: None reported : : None reported GI: GI: GERD Metabolic: Metabolic: None reported Musc/skel: Musc/skel: None reported Neuropsych: Neuropsych: Bipolar Anesthetic Plan: ASA status: 2 Anesthesia: General Risk of > 500 ml blood loss (7ml/kg in children): No Other Pertinent Information: History of PONV plan scopalamine patch, ondansetron, dexamethasone, low dose propfol infusion vs. intermittent low dose propofol boluses throughout case. See dental exam. Medications/Allergies Current Medications: Current Medications Generic Name Dose Route Start Last Admin Trade Name Freq PRN Reason Stop Dose Admin Sodium Chloride 1,000 mls @ 30 ml s/hr 04/19/21 07:30 04/19/21 08:03 Sodium Chloride 0.9% IV 04/20/21 07:29 30 mls/hr .Q24H ZULEYKA Administration PFSH Anesthesia PFSH: Medical History Bipolar disorder, current episode manic severe with psychotic features Bipolar II disorder Cannabis dependence, uncomplicated Chronic obstructive pulmonary disease Greater trochanteric bursitis of both hips History of thyroid disorder Reports had been on medication in the past On high dose antipsychotic drug therapy Other stimulant dependence, in remission Other stimulant dependence, in remission Other stimulant dependence, uncomplicated Post-traumatic stress disorder, chronic Psychiatric care Surgical History H/O total vaginal hysterectomy (11/01/14) TVH with uterosacral ligament suspension. Performed by Dr. Mancini at [facility] in [place], [place] H/O vaginal surgery (02/20/12) Posterior colporrhaphy. Performed by Dr. Zambrano and Dr. Mancini at [facility] in [place], [place] H/O vaginal surgery (07/18/11) Anterior colporrhaphy, Single incision sling. Performed by Dr. Zambrano and Dr. Mancini at [facility] in [place], [place] History of umbilical hernia repair (09/22/19) Performed by Dr. Chiu at [facility] in [place], [place] S/P cone biopsy of cervix (~2002) Vaginal cuff dehiscence (05/01/15) Repair of vaginal cuff dehiscence. DX: Vaginal cuff dehiscence with small bowel evisceration into vagina. Performed by Dr. Mancini at [facility] in [place], [place]. Family History Brother Anesthesia complication nausea Grandmother Cancer esophageal Other Diabetes Social History Second hand smoke exposure: No Smoking risk assessment/counseling performed?: Yes Tobacco counseling given: counseling >3 minutes Alcohol intake: current Alcohol intake frequency: other Lives independently: Yes Household members: children Marital status: Single service: No Current occupational status: unemployed History of recent travel: No Current gender identity: Female Special kimberly needs: No Agree to transfusion: Yes Data Anesthesia Cardiac Studies: No Data to Display
[2021-04-19] MEDS: scopolamine 1.5 Patch 1 PATCH TRANSDERMA (08:12)
--- NOTE | 2021-04-19 08:23 | W.PM.OPSUD ---
Surgery/Procedure H&P Update DATE OF PROCEDURE: April 19, 2021 DATE H&P PERFORMED: 04/13/21 H&P UPDATE INFORMATION: I have reviewed H&P completed within last 30 days, I have examined patient prior to procedure and No changes to prior documentation PREOP DIAGNOSIS: Chronic tonsillitis with recurrent tonsil stones hypertrophy and bleeding PLANNED PROCEDURE: Operation Date: 04/19/21 08:35 Proposed Procedures p Tonsillectomy 50423 J35.01(Not Applicable) - Tyler Martinez MD
[2021-04-19] MEDS: oxymetazoline 0.05% Nasal Spray 15 mL 2 SPRAY NOSTRIL-B (08:53)
--- NOTE | 2021-04-19 09:01 | PM.OP ---
Operative Report Date of procedure: April 19, 2021 Pre-op Diagnosis: Chronic tonsillitis with recurrent tonsil stones hypertrophy and bleeding Post-op diagnosis: same Post-op Findings: No adenoid tissue found. Tonsils removed without incident. Procedure Done: Tonsillectomy Specimens removed/disposition: Tonsils sent for permanent section Surgeon: Tyler Martinez Anesthesia: General Estimated blood loss (mL): 5 Complications: No complications encountered. Findings: Tonsils were showing deep crypts and significant scarring. 2-3+ size. Condition: stable Disposition: PACU Brief History: 40-year-old female patient has had recurrent and chronic tonsillitis with recurrent tonsil stones hypertrophy and bleeding. As a result she is being brought to the operating room to undergo tonsillectomy. The procedure its risks and complications have been explained in detail to the patient in the office setting. These risks included bleeding delayed bleeding infection sore throat voice change nasal regurgitation regrowth need for additional treatment tongue numbness or taste sensation change referred pain to the ears neck soreness or stiffness bad breath and more serious risk such as heart attack or stroke or not surviving the surgery. With these things understood informed consent was granted. Procedure: Description of procedure: The patient was placed on the operating table in the supine position. Adequate general endotracheal tube anesthesia was obtained. She was given Ancef for prophylaxis and Decadron to help with postoperative edema. The table was rotated 90 degrees. The eyes were taped shut. A timeout was accomplished identifying the patient date of plan procedure allergies fire risk and medications given. With all in agreement the procedure continued. A core Paul mouthgag was inserted over the endotracheal tube and tongue ensuring that the upper incisors were in the guard. This was then opened and suspended from a rolled towel placed on her chest. A red rubber catheter was inserted and the left nares and used to elevate the palate. It was evident that there was no adenoid tissue present. Therefore no adenoidectomy was performed. Attention was then turned to the tonsils. A tenaculum was used to clamp the left tonsil and retracted towards the midline. The Coblator on ablation and coagulation modes was then used to dissect the tonsil from its bed from a superior to inferior direction. Hemostasis was obtained as the dissection proceeded. After the left tonsil was removed a similar procedure was performed to remove the right tonsil. Deep crypts and significant scarring was noted. Spot cauterization was then performed to obtain complete hemostasis. Then the red rubber catheter was released and removed. The area was irrigated with saline and manipulation with the suction and the tonsil beds was accomplished. No bleeding was encountered. The mouthgag was released and the tongue and neck were massaged. The mouthgag was reopened. No bleeding was seen. The mouthgag was released and removed. The head was returned to the upright position. Tape was removed from the patient's eyes. The throat was suctioned again to make sure there was no bleeding in the new position. None was seen. The patient was then returned to anesthesia for wake-up and extubation. The patient tolerated the procedure well had an estimated blood loss of 5 mL and arrived in recovery in stable condition.
--- NOTE | 2021-04-19 14:28 | ANE.PACU2 ---
Inpatient post-anesthesia follow up: Airway intact: Yes Vital signs: Temperature 97.8 F Pulse Rate 62 Respiratory Rate 16 Blood Pressure 125/76 Pulse Oximetry 96 Oxygen Delivery Me thod Room Air Oxygen Flow Rate 6 Fraction of Inspir ed Oxygen Hydration adequate: Yes Nausea and vomiting: No Pain level: 3 Mental status: Baseline
== END 2021-04-19 11:15 | disposition home or self-care (01) ==
PROVIDERS: PCP Family Medicine; Visit Provider Otolaryngology
PROC: (CPT 42826; principal; 2021-04-19 08:15)
DX: J35.01 Chronic tonsillitis (principal); J44.9 Chronic obstructive pulmonary disease, unspecified; K21.9 Gastro-esophageal reflux disease without esophagitis
CPT/HCPCS: 42826; 88304; J0690; J1100; J1200; J2250; J2405; J2704; J3010; J3490; J7030

== ENCOUNTER 2021-06-08 06:48 | Outpatient (CLI) | payer MEDICAID, SELFPAY ==
--- NOTE | 2021-06-08 07:15 | US_ITS ---
WS: [id number] Complete ABDOMINAL ULTRASOUND HISTORY: ABD pain, N/V, diarrhea, R/O gallbladder COMPARISON: 09/15/2018 Liver: 15.2 cm in length. Normal size liver. Mild increased attenuation and increased echogenicity pr obably from hepatic steatosis. No mass or bile duct dilatation. Portal Vein: Normal hepatopetal flow with monophasic waveform. Gallbladder: Normally distended with no gallstones, wall thickening or pericholecystic fluid. Gallbladder wall thickness: 0.2 cm. Pancreas: Normal size and echogenicity. CBD: 0.4 cm. Right kidney: 10.8 cm x 4.9 cm x 4.8 cm. No mass, cortical thickening or hydronephrosis. Left kidney: 11.4 cm x 3.7 cm x 3.7 cm. No mass, cortical thickening or hydronephrosis. Spleen: Spleen is top normal size to slightly enlarged measuring 13.8 cm in length. Very similar appe arance on the prior study of 09/15/2018 with no change. Abdominal aorta and IVC are within normal limits. No ascites. US/US abdomen complete* [id number] IMPRESSION: 1. Spleen is top normal size to slightly enlarged but unchanged since 9. 2. Normal gallbladder. 3. Mild hepatic steatosis.
== END 2021-06-08 06:49 | disposition home or self-care (01) ==
PROVIDERS: PCP Family Medicine; Visit Provider Nurse Practitioner Family
DX: K90.9 Intestinal malabsorption, unspecified (principal); R10.9 Unspecified abdominal pain; R11.2 Nausea with vomiting, unspecified; K76.0 Fatty (change of) liver, not elsewhere classified
CPT/HCPCS: 76700

== ENCOUNTER → 2022-01-01 10:14 | Outpatient (BNVA) | payer MEDICAID, SELFPAY | PROVIDERS: PCP Family Medicine; Visit Provider Orthopaedic Surgery | DX: M96.1 Postlaminectomy syndrome, not elsewhere classified (principal); M54.9 Dorsalgia, unspecified; M54.50 Low back pain, unspecified | CPT/HCPCS: 72070; 72110; 99214 ==

== ENCOUNTER 2022-02-19 14:06 | Outpatient (CLI) | payer MEDICAID, SELFPAY ==
--- NOTE | 2022-02-19 14:16 | MM_ITS ---
WS: [id number] BILATERAL 3D TOMOSYNTHESIS DIGITAL SCREENING MAMMOGRAPHY WITH CAD CLINICAL INFORMATION: Z12.31 - Encounter for screening mammogram for malignant ... HISTORY: Screening mammogram. Bilateral breast soreness COMPARISON: October 12, 2015 TECHNIQUE: Bilateral CC and MLO views. FINDINGS: The breasts are composed of heterogeneous fibroglandular density tissue, which can limit the detectio n of small underlying mass lesions. No suspicious mass, asymmetry, calcifications, or architectural d istortion. No evidence of malignancy. Incidental punctate and lucent centered calcifications. MM/[place] [id number] IMPRESSION: BI-RADS: 2-Benign FOLLOW UP: 1 Year Follow-up Recommend return to annual screening mammography.
== END 2022-02-19 14:07 | disposition home or self-care (01) ==
LOC: RAD 14:07
PROVIDERS: PCP Family Medicine; Visit Provider Family Medicine
DX: Z12.31 Encounter for screening mammogram for malignant neoplasm of breast (principal)
CPT/HCPCS: 77063; 77067

== ENCOUNTER 2022-03-13 12:54 | Outpatient (CLI) | payer MEDICAID, SELFPAY ==
--- NOTE | 2022-03-13 13:00 | MR_ITS ---
WS: [id number] MRI LUMBAR SPINE NONCONTRAST TECHNIQUE: Sagittal T1, T2 and STIR imaging. Axial T1 and T2 imaging. CLINICAL INFORMATION: pain COMPARISON: MRI July 31, 2020 FINDINGS: Mild lumbar curve. No acute compression. Mild annular bulging L4-L5 and L5-S1. Tiny annular fissure L 4-L5. L1-L2: Normal. L2-L3: Mild annular bulging. Mild facet arthropathy. Spinal canal and foramen are patent. L3-L4: Mild annular bulging. Tiny RIGHT foraminal protrusion. Spinal canal and foramen are patent. Mi ld facet arthropathy. L4-L5: Mild annular bulging. Tiny annular fissure. Slight effacement of ventral thecal sac. Slight na rrowing of the subarticular recess bilaterally. Moderate facet arthropathy. LEFT hemilaminectomy. Spi nal canal and foramen are patent. L5-S1: Mild annular bulging with narrowing of the subarticular recess bilaterally. Mild facet arthrop athy. Mild RIGHT and no significant LEFT foraminal narrowing. Visualized pelvic bony structures: Normal. Paravertebral soft tissues: Normal. MR/MR lumbar spine wo con* [id number] IMPRESSION: 1. Mild lumbar curve. No acute compression. No high-grade central canal stenos is. 2. Mild annular bulging L4-L5 with tiny annular fissure and slight narrowing o f the subarticular recess bilaterally. This is slightly progressed compared to previous 3. Mild RIGHT L4-L5 foraminal narrowing. 4. Annular bulging L5-S1 slightly encroaches on the traversing S1 nerve roots bilaterally. This is slightly progressed compared to previous. Mild RIGHT dalila inal narrowing. 5. Mild to moderate facet arthropathy L4-L5 and L5-S1.
== END 2022-03-13 12:55 | disposition home or self-care (01) ==
LOC: RAD 12:55
PROVIDERS: PCP Family Medicine; Visit Provider Orthopaedic Surgery
DX: M51.26 Other intervertebral disc displacement, lumbar region (principal); M51.27 Other intervertebral disc displacement, lumbosacral region; M47.816 Spondylosis without myelopathy or radiculopathy, lumbar region; M47.817 Spondylosis without myelopathy or radiculopathy, lumbosacral region
CPT/HCPCS: 72148

== ENCOUNTER → 2022-03-14 09:31 | Outpatient (BNVA) | payer MEDICAID, SELFPAY | PROVIDERS: PCP Family Medicine; Visit Provider Orthopaedic Surgery | DX: M96.1 Postlaminectomy syndrome, not elsewhere classified (principal) | CPT/HCPCS: 99214 ==

== ENCOUNTER 2022-04-10 10:36 | Inpatient (IN) | payer MEDICAID, SELFPAY ==
[2022-04-04 11:14] VITALS: BMI 25.7
--- NOTE | 2022-04-04 11:33 | ANES.PREANE2 ---
Pre-Anesthetic Assessment Height/Weight: Height 1.6 m Weight 65.771 kg Preop Diagnosis: Chronic tonsillitis with recurrent tonsil stones hypertrophy and bleeding Operation Date: 04/10/22 13:45 Proposed Procedures p PLIF L4/5 [id number]/M96.1(Not Applicable) - Juanito Forrest, DO Familial anesthetic complications: PONV Social Tobacco and No alcohol Exam alert, oriented x 3, clear to auscultation bilaterally and regular rate & rhythm Airway Mallampati: Class II Dentition: false Pulmonary Chronic Obstructive Pulmonary Disease GI Gastroesophageal Reflux Disease [facility] [place] Fibromyalgia Neuropsych Bipolar Anesthetic Plan ASA status: 2 Anesthesia: General Risk of > 500 ml blood loss (7ml/kg in children): No Medications/Allergies Home Medications Medication Instructions Recorded Confirmed Last Taken Type fluticasone 250 mcg-salmeterol 50 1 inh inhalation BID #60 ea 03/06/22 04/04/22 04/04/22 Rx mcg/dose blistr powdr for inhalation (Advair Diskus) hydrocodone 7.5 mg-acetaminophen 1 tab PO Q8H PRN Insomnia 03/06/22 04/04/22 04/02/22 History 325 mg tablet nicotine See Rx Instructions transdermal 03/06/22 04/04/22 04/04/22 Rx 21mg/24hr-14mg/24hr-7mg/24hr daily .COMPLEX #56 patches transderm patches,sequentl venlafaxine 75 mg capsule,extended 75 mg PO DAILY #30 caps 03/06/22 04/04/22 04/04/22 Rx release 24 hr (Effexor XR) Intraoperative Neuromonitoring #1 ea 04/03/22 Unknown Rx albuterol sulfate 90 mcg/actuation inhalation PRN Shortness Of Breath 04/04/22 04/04/22 History aerosol inhaler (Ventolin HFA) trazodone 150 mg tablet 150 mg PO DAILY 04/04/22 04/04/22 04/03/22 History Allergies Allergy/AdvReac Type Severity Reaction Status Date / Time paliperidone [From Invega] Allergy Intermediate makes her Verified 04/04/22 11:05 eyes blink extra adhesive tape Allergy ALGY-Bliste Verified 04/04/22 11:05 r Iodinated Contrast Media Allergy airway Verified 04/04/22 11:05 ziprasidone [From Geodon] AdvReac ADR-Shakine Verified 04/04/22 11:05 ss [facility] Anesthesia Medical History Bipolar disorder, current episode manic severe with psychotic features Bipolar II disorder Cannabis dependence, uncomplicated Chronic obstructive pulmonary disease Greater trochanteric bursitis of both hips History of thyroid disorder Reports had been on medication in the past On high dose antipsychotic drug therapy Other stimulant dependence, in remission Other stimulant dependence, in remission Other stimulant dependence, uncomplicated Post-traumatic stress disorder, chronic Psychiatric care Surgical History H/O total vaginal hysterectomy (11/01/14) TVH with uterosacral ligament suspension. Performed by Dr. Mancini at [facility] [place], [place] H/O vaginal surgery (02/20/12) Posterior colporrhaphy. Performed by Dr. Zambrano and Dr. Mancini at [facility] [place] in [place], [place] H/O vaginal surgery (07/18/11) Anterior colporrhaphy, Single incision sling. Performed by Dr. Zambrano and Dr. Mancini at [facility] [place] in [place], [place] History of umbilical hernia repair (09/22/19) Performed by Dr. Chiu at [facility] [place] in [place], [place] S/P cone biopsy of cervix (~2002) Vaginal cuff dehiscence (05/01/15) Repair of vaginal cuff dehiscence. DX: Vaginal cuff dehiscence with small bowel evisceration into vagina. Performed by Dr. Mancini at [facility] in [place], [place]. Family History Brother Anesthesia complication nausea Grandmother Cancer esophageal Other Diabetes Social History Smoking and tobacco status: current every day smoker cigarettes Packs smoked per day: 0.5 Years cigarettes smoked: 20 Second hand smoke exposure: No Smoking risk assessment/counseling performed?: Yes Tobacco counseling given: counseling >3 minutes Alcohol intake: current Alcohol intake frequency: other Lives independently: Yes Household members: children Marital status: Single service: No Current occupational status: unemployed History of recent travel: No Current gender identity: Female Special kimberly needs: No Agree to transfusion: Yes Data Anesthesia Cardiac Studies: No Data to Display
[2022-04-10] VITALS (27 sets, daily range): BP systolic 99–144; BP diastolic 63–102; PULSE 56–100; RESP 12–20; TEMP 36.2–37.1; O2SAT 93–100
--- NOTE | 2022-04-10 | XR_ITS ---
WS: [id number] Lumbar spine, C-arm fluoroscopy views, 04/10/2022 Clinical Data: Or pic. Lumbar fusion Comparison: None. Findings: Dr. Forrest performed a posterior lumbosacral fusion with bilateral pedicle screws and disc spacers. XR/XR lumbar spine 1V [id number] Impression: Posterior lumbosacral fusion.
--- NOTE | 2022-04-10 06:33 | W.PM.OPSUD ---
Surgery/Procedure H&P Update DATE OF PROCEDURE: April 10, 2022 DATE H&P PERFORMED: 03/14/22 H&P UPDATE INFORMATION: I have reviewed H&P completed within last 30 days, I have examined patient prior to procedure and No changes to prior documentation PREOP DIAGNOSIS: Degenerative disc disease lumbar spine PLANNED PROCEDURE: Operation Date: 04/10/22 07:00 Proposed Procedures p PLIF L4/5 [id number]/76804/M96.1(Not Applicable) - Juanito Forrest DO
[2022-04-10] MEDS: scopolamine 1.5 Patch 1 PATCH TRANSDERMA (06:51)
[2022-04-10] MEDS: sodium chloride 0.9% 1,000 ML 30 ML IV (06:51)
--- NOTE | 2022-04-10 06:58 | P.ANESUD_ITS ---
Pre-Anesthetic Update Pre-Anesthetic Assessment: Date of Surgery/Procedure: 04/19/22 Preop Apple gnosis: Degenerative disc disease lumbar spine Proposed Procedure: Operation Date: 04/10/22 07:00 Proposed Procedures p PLIF L4/5 [id number]/51627/M96.1(Not Applicable) - Juanito Forrest, DO Any changes to Pre-Anesthetic Assessment?: No Last Intake: Intake Last Liquid Date 04/09/22 Last Liquid Time 20:00 Last Solid Date 04/09/22 Last Solid Time 19:30 Vitals: Temperature 97.6 F 04/10/22 06:33 Temperature Source Temporal Artery S can 04/10/22 06:33 Pulse Rate 69 04/10/22 06:33 Respiratory Rate 18 04/10/22 06:33 Blood Pressure 122/66 04/10/22 06:33 Blood Pressure Rahcna n 84 04/10/22 06:33 Pulse Oximetry 97 04/10/22 06:33 Oxygen Delivery Me thod 04/10/22 06:33 Exam: Pre-Anes Outpt Exam: alert, oriented x 3, clear to auscultation bilaterally and regular rate & rhythm Cardiac Studies: No Data to Display
[2022-04-10] MEDS: ceFAZolin 2,000 MG in sodium chloride 0.9% (plus) 50 ML 100 MG IV ×3 (07:05→22:56)
[2022-04-10] MEDS: tranexamic acid 1,000 mg/10mL SDV 1000 MG IV (07:38)
[2022-04-10] MEDS: heparin, porcine 1,000 unit/mL INJ 10 mL 10000 UNIT IRRIGATION (08:06)
[2022-04-10] MEDS: vancomycin 1,000 MG SDV 1000 MG XX (08:08)
--- NOTE | 2022-04-10 08:09 | SUR.OPER ---
2% LIDOCAINE WITH EPI 10ML WAS INJECTED INTO THE BACK.
[2022-04-10] MEDS: albumin 12.5 GM/250 ML VIAL IV (09:05)
--- NOTE | 2022-04-10 10:11 | XR_ITS ---
WS: [id number] Lumbar spine, AP and lateral views, 04/10/2022 Clinical Data: PA/LAT Post op fusion Comparison: Lumbar spine, 01/01/2022 Findings: There is a posterior lumbar sacral fusion L4-S1 with bilateral pedicle screws and connecting rods. Th ere are disc spacers at L4-L5 and L5-S1. There is an L5 laminectomy. There are bony fusions laterally from L4 to L5. XR/XR lumbar spine 2-3V* [id number] Impression: Posterior lumbosacral fusion L4-S1.
--- NOTE | 2022-04-10 10:24 | P.OP_ITS ---
Operative Report Date of procedure: April 10, 2022 Pre-op diagnosis: Preop Diagnosis Degenerative disc disease lumbar spine: Lumbar Stenosis with Neurogenic claudication Post-op diagnosis: same Procedure done: 1. L4/5 Interbody fusion with posterolateral fusion 2. L5/S1 Interbody fusion with posterolateral fusion 3. Instrumentation L4-S1 4. Cage at L4/5 5. Cage at L5/S1 6. Laminectomy L4/5with partial facetectomies 7. Laminectomy L5/S1 with partial facetetomies 8. Use of autograft from same incision 9. Allograft 10. Bone marrow aspirate from right iliac crest 11. Use of computer navigation/ stereotactic Surgeon: Juanito Forrest Panelbeater: Sang Denton Panelbeater: The operating room surgical technician, Sang Denton, PAC was needed for his expertise under the microscope. He was important and necessary throughout the procedure to complete in a safe and timely manner. He assisted with patient positioning prepping and draping tissue retraction suctioning of the operative field protection of the dural sac and tissue closure Estimated blood loss (mL): 600 Procedure: 1. L4/5 Interbody fusion with posterolateral fusion 2. L5/S1 Interbody fusion with posterolateral fusion 3. Instrumentation L4-S1 4. Cage at L4/5 5. Cage at L5/S1 6. Laminectomy L4/5with partial facetectomies 7. Laminectomy L5/S1 with partial facetetomies 8. Use of autograft from same incision 9. Allograft 10. Bone marrow aspirate from right iliac crest 11. Use of computer navigation/ stereotactic Patient is brought to the operative suite.? After undergoing anesthesia, the patient had neuro monitoring attached.? Patient was then placed in the prone position on the Aristeo table.? All areas of impingement were well-padded.? Patient was then prepped and draped in the normal sterile fashion.? Skin incision was then made over the L4 to S1.? Subperiosteal dissection was made out to the transverse processes of L4 and S1.? The Signal bone marrow aspirate kit was used to aspirate bone marrow aspirate from the right iliac crest.? This was done by using the sharp probe to open up the bone.? Aspiration was performed and then the blunt probe was then used to dissect down to through the bone tunnel.? An aspirating well drawn back a millimeter approximately 20 cc of bone marrow aspirate was used.? Admixed with the allograft and autograft bone that will be used. Extension was used using the computer navigation.? 2 pins were placed in the right iliac crest.? The fiducial was then attached to these 2 pins after they were drilled into the iliac crest on the right side.? These pins were later removed at the end of the case.? The C-arm was then brought in and the information from the C-arm was then linked in the computer.? And then later used for placing the pedicle screws. The technique for placing the pedicle screws was to use a drill followed by the gearshift probe linked to computer navigation.? Followed by the ball probe to feel the superior inferior medial lateral chavez of the pedicles.? Then placement of the screws using computer navigation.? Was done at each pedicle.? Screws were placed at? L4 bilaterally, L5 bilaterally and S1.? Next attention was brought to performing the laminectomy of L4.? This was done using the high-speed bur Kerrisons and curettes.? Once the lamina was removed and then attention was brought to performing a partial facetectomy on the contralateral side.? This was done again using the high-speed bur curettes and Kerrisons.? The ligamentum flavum was taken down bilaterally from L4 to L5.? Attention was then brought to the facet on the ipsilateral side.? The facet was taken down.? The L5 nerve was decompressed as it passed around the L5 pedicle.? The laminectomy was done for purposes of decompressing the nerve as well as placement of the cage.? The L4 nerve was identified as it traversed through the L4/5 foramen.? The thecal sac was identified and retracted.? The L4/5 disc base was identified.? Using a knife the disc base was opened.? And then sequential melida were placed.? The first shaver was a 6 and the last shaver was a 11.? Using a pituitary and down going curette the endplates were scraped and disc material was removed from the space.? Once adequate decompression of the disc base was felt to be had.? Osteoamp sponge was packed into the anterior aspect of the disc base.? Then a size 13 cage from [employer], IP was placed after packing osteoa mp into the cage.? While placing the cage the thecal sac and L5 nerve was protected.? C arm was used to ensure that the cages placed in the appropriate position. Next attention was brought to performing the laminectomy of L5.? This was done using the high-speed bur Kerrisons and curettes.? Once the lamina was removed and then attention was brought to performing a partial facetectomy on the contra lateral side.? This was done again using the high-speed bur curettes and Kerrisons.? The ligamentum flavum was taken down bilaterally from L5 to S1.? Attention was then brought to the facet on the ipsilateral side.? The facet was taken down.? The S1 nerve was decompressed as it passed around the S1 pedicle.? The laminectomy was done for purposes of decompressing the nerve as well as placement of the cage.? The L5 nerve was identified as it traversed through the L5/S1 foramen.? The thecal sac was identified and retracted.? The L5/S1 disc base was identified.? Using a knife the disc base was opened.? And then sequential melida were placed.? The first shaver was a 6 and the last shaver was a 12.? Using a pituitary and down going curette the endplates were scraped and disc material was removed from the space.? Once adequate decompression of the disc base was felt to be had.? Osteoamp sponge was packed into the anterior aspect of the disc base.? Then a size 12 cage from [employer], IP was placed after packing osteoamp into the cage.? While placing the cage the thecal sac and S1 nerve was protected.? C arm was used to ensure that the cages placed in the appropriate position. Attention was then brought to attaching the rods to the screws placed in the L4 bilaterally, L5 bilaterally and S1 bilaterally.? Caps were torqued into position. Locking the construct in place. Wound was copiously irrigated and then attention was brought to decorticating the facets and transverse processes laterally.? Bone that was taken down from the lamina was used along with osteoamp fibers and sponges were packed into the lateral gutters along the facet joints.? This was done bilaterally. Wound was then closed in a layered fashion starting with the thoracolumbar fascia.? 0-vicryl was used the sub cutaneous tissue was closed with 2-0 vicryl and skin with 4-0 monocryl.? Glue was then used to seal the skin and a steril dressing was applied.? Patient was then placed in the supine position. The endotracheal tube was removed and patient was transferred to the PACU in stable condition.
[2022-04-10] MEDS: HYDROmorphone 1 mg/mL INJ 1 mL 0.5 MG IVP (10:47)
[2022-04-10] MEDS: ketorolac 30 mg/mL INJ IVP ×2 (11:55→19:05)
[2022-04-10] MEDS: lactated ringers 1,000 ML 90 ML IV (13:05)
[2022-04-10] MEDS: HYDROcodone-acetaminophen 10-325 mg Tablet PO ×3 (13:44→21:52)
[2022-04-10] MEDS: morphine 4 mg/mL SDV 1 mL 2 MG IVP ×3 (15:41→19:04)
[2022-04-10] MEDS: docusate sodium 100 mg Capsule PO (16:34)
--- NOTE | 2022-04-10 17:30 | ANE.PACU2 ---
Inpatient post-anesthesia follow up: Airway intact: Yes Vital signs: Temperature 98.2 F Pulse Rate 62 Respiratory Rate 18 Blood Pressure 123/78 Pulse Oximetry 97 Oxygen Delivery Me thod Room Air Oxygen Flow Rate Fraction of Inspir ed Oxygen Hydration adequate: Yes Nausea and vomiting: No Pain level: 4 Mental status: Baseline
[2022-04-10] MEDS: albuterol 2.5 mg/3 mL Neb INHALATION (21:00)
[2022-04-10] MEDS: budesonide 0.5 mg/2 mL Neb INHALATION (21:01)
[2022-04-10] MEDS: trazodone 150 mg Tablet PO (22:56)
[2022-04-11] VITALS (8 sets, daily range): BP systolic 103–104; BP diastolic 60–68; PULSE 54–79; RESP 16; TEMP 36.6–36.7; O2SAT 95–98
[2022-04-11] MEDS: morphine 4 mg/mL SDV 1 mL 2 MG IVP (00:05)
[2022-04-11] MEDS: lactated ringers 1,000 ML 90 ML IV (00:07)
[2022-04-11] MEDS: HYDROcodone-acetaminophen 10-325 mg Tablet PO ×2 (05:02→09:07)
[2022-04-11] MEDS: ceFAZolin 2,000 MG in sodium chloride 0.9% (plus) 50 ML 100 MG IV (06:33)
--- NOTE | 2022-04-11 07:36 | P.PN_ITS ---
Subjective Subjective: POD 1 Patient resting comfortably. Reports back pain leg pain has improved. Denies any shortness of breath, chest pain, headaches. Vitals/I&O/Wt Last Vital Signs Temp 98.8 F 04/10/22 23:59 Pulse 56 L 04/10/22 23:59 Resp 16 04/11/22 00:05 BP 99/63 04/10/22 23:59 Pulse Ox 98 04/10/22 23:59 O2 Del Method 04/10/22 20:00 04/10/22 04/11/22 04/11/22 22:59 06:59 14:59 Intake Total 50 / 1400 1043 / 2443 Output Total 200 / 225 Balance -150 / 1175 1043 / 2218 Physical Exam Narrative: Patient presents alert and oriented x3 with a good general appearance normal mood and affect. Normal coordination normal stability. Mild tenderness around the incisional site with the incision appear to be clean and dry. Hemovac intact. No signs of erythema or drainage. No signs of infection. Patient denies any fevers or chills. 5/5 motor strength both lower extremities with negative straight leg raise bilaterally. Calves are supple no medial thigh tenderness. Pulses are 2+ at the dorsalis pedis and posterior tibial region. Good capillary refill throughout normal sensation light touch both lower extremities. Urinary Catheter Management: Stewart: Cath Placed During This Visit: yes Reason for Continuing Indwelling Catheter: Required Immobilization for Trauma or Surgery or Anesthesia Urinary Catheter Date of Insertion: 04/10/22 Urinary Catheter Time of Insertion: 07:15 A&P Assessment and plan (1) Status post lumbar spinal fusion: Physical therapy to evaluate and mobilize. Discontinue Stewart catheter and Hemovac drain. Encourage incentive spirometer for pulmonary toilet. Will discharge home later today. Have her follow-up in the office in 1 week's time for wound check. Encouraged her to refrain from any bending lifting or twisting activities walking program is her only physical therapy at this time. She will call if she is having problems. Attestations Medical Necessity Statement*: Discharge home later today Coding Level of Care Code Acute Director Pharmacology for Marzena Tong Diagnoses Status post lumbar spinal fusion Z98.1
[2022-04-11] MEDS: budesonide 0.5 mg/2 mL Neb INHALATION (08:28)
[2022-04-11] MEDS: albuterol 2.5 mg/3 mL Neb INHALATION ×2 (08:28→11:24)
--- NOTE | 2022-04-11 08:48 | PC.SOCIAL ---
CM contacted patient and obtained choice for HOME for her walker needs, precert done auth#[id number], order faxed to HOME
[2022-04-11] MEDS: docusate sodium 100 mg Capsule PO (09:07)
[2022-04-11] MEDS: venlafaxine ER (24HR) 75 mg Capsule PO (09:07)
--- NOTE | 2022-04-11 09:23 | PC.NURSE ---
Pulled patients aparicio and hemovac drain at 8:00 am.
--- NOTE | 2022-04-11 10:27 | PC.CHAP ---
Pastoral Care Encounter/Spiritual Assessment Type of Contact [] Declined mixed livestock farm worker visit [] Patient/Family/Request visit [] Outpatient visit [] Follow-up visit [] Physician referral [] Code/Alert [x] Routine visit [] Staff referral [] Actively dying [] Patient sleeping [] Family support [] [] Out of room [] Palliative care [] [x] Receiving care in room [] Pre-surgical visit [] Trauma [] Long length of stay [] ICU visit [] Other: Relational/Emotional Strength [x] Patient feels connected with others/family/visitors/staff [] Distress [] Loneliness/isolation [] Abandonment Spirituality of Patient [x] Person of Karen [] Attends Taoist of their Karen [x] Believes in Prayer [] Reads Bible or Mormon materials [] There are Spiritual issues to be addressed Pricing Specialist Interventions [x] Prayer [x] Active listening [x] Non-anxious presence [x] Spiritual/emotional support [] Crisis/trauma care [x] Spiritual counseling [] Bereavement support [] Provided bereavement packet [] Provided Bible/devotional materials [] Provided toy/stuffed animal, coloring book to patient or family member [] Provided Communion [] Anointing/[place] [] Salvation [x] Completed spiritual assessment [] Other: Impact on Illness or Injury [] Angry [] Fearful [x] Anxious [] Often cries [] Exhaustion [] Unable to work [] Unable to attend yazdanism [] Unable to walk/stand [] Unable to read [] Unable to drive [] Unable to eat/drink [] Unable to sleep [] Unable to be with family [] Patient intubated [] Other: Summary Back fusion second time and more proceduers in some pain has good attitude going home Time spent with patient 10 mins
--- NOTE | 2022-04-11 11:42 | PC.NURSE ---
Discussed discharge, follow up appointment and new medication with patient. Verbalized understanding.
--- NOTE | 2022-04-15 11:28 | PM.DCS ---
Discharge Providers Date of Admission: 04/10/22 10:36 Date of Discharge: April 11, 2022 Attending Provider at Admission: Juanito Forrest DO Attending Provider at Discharge: Juanito Forrest DO Primary Care Provider: Denise Santana MD Diagnoses at Discharge Discharge Diagnosis (1) Status post lumbar spinal fusion: Status: Acute Reason for Visit Reason for Visit: POSTERIOR LUMBAR INTERBODY FUSION L4/5 81685/10240 Hospital Course Hospital Course oain controlled Physical Exam Urinary Catheter Management: Stewart: Cath Placed During This Visit: yes Reason for Continuing Indwelling Catheter: Required Immobilization for Trauma or Surgery or Anesthesia Urinary Catheter Date of Insertion: 04/10/22 Urinary Catheter Time of Insertion: 07:15 Discharge Data Studies Completed and Pending Completed Studies During Hospitalization Category Date Time Status XR lumbar spine 1V [id number] Routine Exams 04/10/22 Completed XR lumbar spine 2-3V* [id number] Routine Exams 04/10/22 10:11 Completed Radiology Impressions Lumbar Spine X-Ray 04/10/22 10:11 Impression: Posterior lumbosacral fusion L4-S1. Laboratory Results Blood Type O Positive 04/10/22 06:43 Rho(D) Type Positive 04/10/22 06:43 Antibody Screen Negative 04/10/22 06:43 Vitals Last Vital Signs Temp 97.8 F 04/11/22 13:36 Pulse 73 04/11/22 13:36 Resp 16 04/11/22 13:36 BP 104/60 04/11/22 13:36 Pulse Ox 95 04/11/22 13:36 O2 Del Method 04/11/22 11:56 Discharge Plan Discharge Patient Disposition: Home Condition: Stable Prescriptions: New hydrocodone-acetaminophen 10-325 mg Tablet 1 - 2 tab PO Q4H PRN (Reason: Post-op pain) Qty: 40 0RF Continued venlafaxine [Effexor XR] 75 mg capsule,extended release 24hr 75 mg PO DAILY Qty: 30 3RF fluticasone propion-salmeterol [Advair Diskus] 250-50 mcg/dose blister with device 1 inh inhalation BID Qty: 60 3RF nicotine 21-14-7 mg/24 hr patch, TD daily, sequential See Rx Instructions transdermal .COMPLEX Qty: 56 0RF Rx Instructions: apply 1-21 mg NICOTINE PATCH daily for 28 days; follow with 1-14 mg PATCH daily for 14 days, then 1-7mg PATCH daily for 14 days transdermal (DME) Intraoperative Neuromonitoring See Rx Instructions .Route .MEDSUPPLY Qty: 1 0RF Rx Instructions: As directed trazodone 150 mg Tablet 150 mg PO BEDTIME PRN (Reason: Insomnia) Rx Instructions: patient states this is an old prescription that she is taking to help her sleep. albuterol sulfate [Ventolin HFA] 90 mcg/actuation HFA aerosol inhaler 2 puff INHALATION QID PRN (Reason: Shortness Of Breath) hydrocodone-acetaminophen 10-325 mg tablet 1 tab PO Q8H PRN (Reason: Pain) Discharge Orders: Discharge Order (Routine); Ordered 04/11/22 Ordered By: Sang Denton Other Ambulatory Orders: DME: Walker (Order) Location: None Selected Ordered By: Juanito Forrest Referrals: Juanito Forrest, [Physician] - 04/18/22 9:45 am Discharge Diet: Advance as tolerated Discharge Activity: Limit activity as instructed Patient Instructions: Hydrocodone/Acetaminophen (By mouth), How to Choose and Use a Walker (GEN), Lumbar Spinal Fusion (GEN), Opioid Safety Activity Restrictions/Additional Instructions: Thank you for choosing [facility] for your care! The following is a list of instructions, from your provider, to follow upon your discharge to ensure you have the optimal recovery from your recent injury or surgery. Follow-up care is a lopez part of your treatment and safety. Be sure to make and go to all appointments and call your doctor if you are having problems. If you do not already have a follow-up appointment made, call Dr. Forrest's] office in the next 1-3 days to make follow up appointment for 1 weeks at [phone]. It is also a good idea to know your test results and keep a list of the medicines you take. Medications will be prescribed for you at your provider's discretion. These medications are to be used as instructed; if they are taken more often that prescribed they will not be refilled early and in most cases will not be refilled at all. > When a refill is needed, you should contact hubert bailey 2-3 business days before your prescription runs out. Medications will NOT be refilled by personal protection specialist providers after hours! > Many pain medications contain Tylenol (Acetaminophen). Do not consume more than 4,000 mg of Tylenol per day in total with any combination of medications. > Pain medications can cause constipation. Please use an over the counter stool softener as directed, while taking pain medications. Consult your local pharmacist with questions or recommendations on stool softeners. If constipation persists, contact our office or your primary care provider. > While under our care, you are not to receive pain medications or other controlled substances from any other provider unless our office is notified and approves. Any attempts to do so will result in refusal to prescribe any further pain medications and possible dismissal from our practice. ? Walking is essential for the healing process after surgery. We would like you to slowly advance your walking. This should be done on relatively flat clear ground (inside or out) or can be done on a treadmill. Remember this goal does not have to happen all at once, slowly increase your distance and duration. This can be broken into more more than one walk per day as tolerated. Patients who walk as directed after surgery rarely require Physical Therapy. In the unlikely event this issue arises your provider will direct hospital staff to make the appropriate arrangements. ? No lifting over 5 pounds {a gallon of milk) or bending/twisting until further notice. Each of these activities places an unnecessary amount of stress onto the body and can impede the delicate healing process. > Instead of bending at the waist, keep your back straight and bend at the knees. > Instead of twisting your torso, keep your back straight and turn your entire body with your feet. ? You may sleep in any position which makes you comfortable. Many patients find comfort sleeping in a reclining chair. It is not abnormal to have difficulty sleeping for the first several weeks following your surgery. We recommend trying Benadry! or Tylenol PM as directed to help with your sleeping difficulties. Both medications are over the counter and available without prescription. ? NO SMOKING!!! Smoking dramatically increases the probability of developing postoperative wound infections. ? Common complaints after lumbar and/or thoracic spine surgery include, but are not limited to: numbness and/or tingling in the legs, pain around the incision and surrounding tissues, muscle spasms, or stiffness of the middle to low back. Contact our office if these symptoms persist or if an acute change occurs. ? No driving for the first 3-5days, and not while taking narcotics until seen at your follow-up appointment and cleared. There are no restrictions for riding on short trips, however if you take a longer trip, arrangements should be made to make regular stops to get out of the vehicle and stretch . ? Swelling is an unfortunate event that will take place with any surgery and is the primary source of your postoperative discomfort. While walking and regular approved activities helps control inflammation, there are additional steps you can take to minimize swelling. > Place ice over the surgical site and surrounding tissue for twenty minutes, followed by applying a low/medium heat (heating pad) for an additional twenty minutes every 1-2 hours as needed for painrelief. > You may use of over the counter anti-inflammatory medications (Ibuprofen, Motrin, Aleve, Advil, etc) as directed on the package label. These types of medicines will significantly reduce the amount of discomfort you experience after surgery from swelling. It should be noted that if you have and allergy to any of these medications, or a history of ulcers or kidney disease you should consult you primary care provider prior to starting these medications. Discharge Attestations Time Spent in Discharge Care*: less than 30 min Quality Metrics Clinical Quality Measures [ No reported AMI, CVA or VTE this stay] Coding Level of Care Code Acute Chg FW DC note Diagnoses Status post lumbar spinal fusion Z98.1
== END 2022-04-11 13:00 | disposition home or self-care (01) | DRG 454 ==
LOC: MEDSURG 17:26
PROVIDERS: Admitting Provider Orthopaedic Surgery; PCP Family Medicine; Visit Provider Orthopaedic Surgery
PROC: 0SG00AJ Fusion of Lumbar Vertebral Joint with Interbody Fusion Device, Posterior Approach, Anterior Column, Open Approach (ICD-10-PCS; CPT 22612; principal; 2022-04-10 07:00)
DX: M51.36 Other intervertebral disc degeneration, lumbar region (principal); F31.81 Bipolar II disorder; M48.062 Spinal stenosis, lumbar region with neurogenic claudication; M96.1 Postlaminectomy syndrome, not elsewhere classified; Z91.041 Radiographic dye allergy status; Z79.51 Long term (current) use of inhaled steroids; Z79.891 Long term (current) use of opiate analgesic; F12.20 Cannabis dependence, uncomplicated; J44.9 Chronic obstructive pulmonary disease, unspecified; F43.12 Post-traumatic stress disorder, chronic; F17.210 Nicotine dependence, cigarettes, uncomplicated; G89.29 Other chronic pain
CPT/HCPCS: 36415; 51702; 72020; 72100; 76000; 86850; 86900; 94640; 97161; 97530; C1713; C9359; J0330; J0690; J1100; J1170; J1200; J1644; J1885; J2250; J2270; J2370; J2405; J2704; J2710; J3010; J3370; J3490; J7030; J7120; J7613; J7626; P9045

== ENCOUNTER → 2022-04-18 14:00 | Outpatient (BNVA) | payer MEDICAID, SELFPAY | PROVIDERS: PCP Family Medicine; Visit Provider Physician Assistant | DX: Z98.1 Arthrodesis status (principal) | CPT/HCPCS: 99024 ==

== ENCOUNTER 2022-04-22 12:41 | Emergency (ER) | payer MEDICAID, SELFPAY ==
--- NOTE | 2022-04-22 12:49 | ECG_ITS ---
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 Measurements Intervals [place] Rate: 68 P: 61 NH: 149 QRS: 75 QRSD: 82 T: 66 QT: 434 QTc: 463 Interpretive Statements SINUS RHYTHM WITH MARKED SINUS ARRHYTHMIA Compared to ECG 10/27/2015 19:19:05 No significant changes Electronically Signed On 04-22-2022 18:42:31 RUNNER WORKER by Jesse Mendosa M.D. [email or web address]
[2022-04-22 12:50] VITALS: BP 116/62; PULSE 69; RESP 14; O2SAT 98; BMI 27.3
--- NOTE | 2022-04-22 12:50 | XR_ITS ---
WS: [id number] Portable AP upright chest, 04/22/2022 Clinical Data: dyspnea/cough Comparison: Two-view chest, 07/09/2018. Findings: No nodules, masses or effusions are seen. The heart is normal. The pulmonary vascularity is not increased. No pneumonia or pneumothorax is seen. XR/XR chest 1V portable [id number] Impression: Negative chest.
[2022-04-22 12:59] VITALS: BP 122/58; PULSE 71; RESP 16; O2SAT 94
--- NOTE | 2022-04-22 13:16 | W.ED.SYNCOPE ---
HPI - Syncope General: Chief Complaint: Syncope Stated Complaint: SYNCOPE/ POSSIBLE BROKEN NOSE Time Seen by Provider: 04/22/22 12:49 Source: patient Mode of arrival: EMS History of Present Illness: 41-year-old female presents emergency room after syncopal episode. She recently had a back surgery she been feeling nauseous this morning she sat down she leaned forward into a bucket and then passed out. She recently had a extensive fusion in the lumbar spine by Dr. Forrest. She had initially had a lot of discomfort and nausea vomiting fluids surgery she had been able to fill her pain medications. There was a brief loss of consciousness with this and she has a small laceration on the bridge of her nose.5q No other injuries or complaints at this time MD complaint: loss of consciousness Onset (ago): minute(s) Prodromal symptoms: lightheaded and nausea/vomiting Injuries sustained associated with event: none Associated symptoms: Deny abdominal pain, chest pain, fever(s) or nausea Treatments prior to arrival: none Review of Systems Const: Denies: fever(s), chills, body aches, change in appetite, fatigue or malaise ENMT: Denies: throat pain, ear or mastoid pain, nasal discharge or nasal congestion Card: Denies: chest pain, edema, dyspnea on exertion or orthopnea Resp: Denies: dyspnea, productive cough or non-productive cough GI: Denies: abdominal pain, nausea, vomiting, hematemesis, coffee ground emesis, diarrhea, constipation, bloating, hematochezia or melena : Denies: flank pain, difficulty voiding, dysuria, urinary frequency or urinary urgency Skin/Breast: Denies: rash or pruritus PFS ED PFSH: Medical History Bipolar disorder, current episode manic severe with psychotic features Bipolar II disorder Cannabis dependence, uncomplicated Chronic obstructive pulmonary disease Greater trochanteric bursitis of both hips History of thyroid disorder Reports had been on medication in the past On high dose antipsychotic drug therapy Other stimulant dependence, in remission Other stimulant dependence, in remission Other stimulant dependence, uncomplicated Post-traumatic stress disorder, chronic Psychiatric care Surgical History H/O total vaginal hysterectomy (11/01/14) TVH with uterosacral ligament suspension. Performed by Dr. Mancini at [facility] in [place], [place] H/O vaginal surgery (02/20/12) Posterior colporrhaphy. Performed by Dr. Zambrano and Dr. Mancini at [facility] in [place], [place] H/O vaginal surgery (07/18/11) Anterior colporrhaphy, Single incision sling. Performed by Dr. Zambrano and Dr. Mancini at [facility] in [place], [place] History of umbilical hernia repair (09/22/19) Performed by Dr. Chiu at [facility] in [place], [place] S/P cone biopsy of cervix (~2002) Vaginal cuff dehiscence (05/01/15) Repair of vaginal cuff dehiscence. DX: Vaginal cuff dehiscence with small bowel evisceration into vagina. Performed by Dr. Mancini at [facility] in [place], [place]. Family History Brother Anesthesia complication nausea Grandmother Cancer esophageal Other Diabetes Social History Smoking and tobacco status: current every day smoker cigarettes Packs smoked per day: 0.5 Years cigarettes smoked: 20 Second hand smoke exposure: No Smoking risk assessment/counseling performed?: Yes Tobacco counseling given: counseling >3 minutes Alcohol intake: current Alcohol intake frequency: other Lives independently: Yes Household members: children Marital status: Single service: No Current occupational status: unemployed History of recent travel: No Current gender identity: Female Special kimberly needs: No Agree to transfusion: Yes Physical Exam Const: GENERAL APPEARANCE: cooperative and comfortable ORIENTATION/CONSCIOUSNESS: Yes awake, Yes oriented to person, Yes oriented to place and Yes oriented to time HENMT: COMMON NORMALS: normocephalic, atraumatic, hearing grossly normal bilaterally, external ears normal, EAC's normal, TM's normal bilaterally, Normal nasal mucous membranes and turbinates present, moist oral mucous membranes and oropharynx normal HEAD & SCALP: normocephalic and atraumatic NOSE: Normal nasal mucous membranes and turbinates present EXTERNAL EAR: Yes external ears normal EXTERNAL AUDITORY CANAL: EAC's normal TYMPANIC MEMBRANE: TM's normal bilaterally Resp: COMMON NORMALS: normal respiratory effort, No retractions, No use of accessory muscles and clear to auscultation bilaterally AUSCULTATION: clear to auscultation bilaterally Cardio: COMMON NORMALS: regular rate, regular rhythm and No murmurs present (Cardio) RATE: regular rate RHYTHM: regular rhythm GI: COMMON NORMALS: Soft to palpation and No hepatosplenomegaly present AUSCULTATION: Yes normoactive bowel sounds PALPATION: Yes Soft to palpation, No Tenderness to palpation present (GI), No Guarding due to palpation present (GI) and Yes No hepatosplenomegaly present Extremity: COMMON NORMALS: normal to inspection, capillary refill normal, no clubbing, cyanosis or edema, no calf tenderness and no pedal edema Neuro: SENSORIUM/ORIENTATION: Yes oriented to person, Yes oriented to place and Yes oriented to time Skin: COMMON NORMALS: no rashes or lesions noted GENERAL SKIN EXAM: no rashes or lesions noted Course Vital Signs: Vital signs: Vital Signs Pulse Rate 73 04/22/22 16:18 Respiratory Rate 16 04/22/22 16:18 Blood Pressure 108/78 04/22/22 16:18 Pulse Oximetry 95 04/22/22 16:18 Oxygen Delivery Me thod 04/22/22 14:57 MDM - Syncope Medical Decision Making Labd imaging and EKG reviewed. No acute changes noted on the EKG. Syncopal episode increase fluid intake - follow up with ortho as previosuly scheduled. Medical Records I reviewed the patient's medical records. Lab Data I reviewed the patient's lab results. 04/22/22 13:35 04/22/22 13:35 Radiology Impressions Chest X-Ray 04/22/22 12:50 Impression: Negative chest. Cervical Spine CT 04/22/22 13:19 IMPRESSION: Normal cervical spine. Face CT 04/22/22 13:19 IMPRESSION: No facial bone fractures. Head CT 04/22/22 13:19 IMPRESSION: Negative head CT. Laboratory Results WBC 11.6 10^3/uL (4.0-10.0) H 04/22/22 13:35 RBC 4.16 10^6/uL (4.1-5.3) 04/22/22 13:35 Hgb 12.5 g/dL (11.5-15.3) 04/22/22 13:35 Hct 39.1 % (37.0-47.0) 04/22/22 13:35 MCV 94.0 fl (81-99) 04/22/22 13:35 MCH 30.0 pg (28.0-34.0) 04/22/22 13:35 MCHC 32.0 g/dL (30.0-36.0) 04/22/22 13:35 RDW 14.9 % (12.1-15.1) 04/22/22 13:35 Plt Count 503 10^3/cmm (130-400) H 04/22/22 13:35 MPV 9.2 fL (7.4-10.4) 04/22/22 13:35 Neut % (Auto) 79.4 % 04/22/22 13:35 Lymph % (Auto) 14.9 % 04/22/22 13:35 Boyd % (Auto) 4.4 % 04/22/22 13:35 Eos % (Auto) 0.6 % 04/22/22 13:35 Baso % (Auto) 0.3 % 04/22/22 13:35 Neut # (Auto) 9.24 10^3/uL (1.8-7.7) H 04/22/22 13:35 Lymph # (Auto) 1.7 10^3/uL (0.8-4.8) 04/22/22 13:35 Boyd # (Auto) 0.5 10^3/uL (0.2-0.9) 04/22/22 13:35 Eos # (Auto) 0.1 10^3/uL (0.0-0.8) 04/22/22 13:35 Baso # (Auto) 0.0 10^3/uL (0.0-0.1) 04/22/22 13:35 Nucleated RBC % (auto) 0 % 04/22/22 13:35 Nucleated RBCs # 0.0 /100WBC 04/22/22 13:35 Sodium 138 mmol/L (136-145) 04/22/22 13:35 Potassium 3.7 mmol/L (3.5-5.1) 04/22/22 13:35 Chloride 99 mmol/L (98-107) 04/22/22 13:35 Carbon Dioxide 25 mmol/L (22-29) 04/22/22 13:35 Anion Gap 17.7 (5-19) 04/22/22 13:35 BUN 10 mg/dL (6-20) 04/22/22 13:35 Creatinine 0.6 mg/dL (0.5-0.9) 04/22/22 13:35 GFR Calculation 110.2 mL/min (90-130) 04/22/22 13:35 Glucose 99 mg/dL (65-115) 04/22/22 13:35 Calculated Osmolality 285 mOsm/kg (285-295) 04/22/22 13:35 Calcium 9.5 mg/dL (8.5-10.5) 04/22/22 13:35 Total Bilirubin 0.2 mg/dL (0.15-1.2) 04/22/22 13:35 AST 14 U/L (0-32) 04/22/22 13:35 ALT 10 U/L (0-33) 04/22/22 13:35 Alkaline Phosphatase 103 U/L (35-105) 04/22/22 13:35 Total Protein 8.1 g/dL (6.6-8.7) 04/22/22 13:35 Albumin 4.6 g/dL (3.5-5.2) 04/22/22 13:35 Globulin 3.5 g/dL (1.3-4.6) 04/22/22 13:35 Urine Color Straw (Yellow) 04/22/22 13:20 Urine Appearance Clear (CLEAR) 04/22/22 13:20 Urine pH 7 (5-7) 04/22/22 13:20 Ur Specific [place] 1.015 (1.005-1.030) 04/22/22 13:20 Urine Protein Neg (Negative) 04/22/22 13:20 Urine Glucose (UA) Norm (Normal) 04/22/22 13:20 Urine Ketones Negative (Negative) 04/22/22 13:20 Urine Blood Neg (Negative) 04/22/22 13:20 Urine Nitrate Negative (Negative) 04/22/22 13:20 Urine Bilirubin Neg (Negative) 04/22/22 13:20 Urine Urobilinogen Norm mg/dL (Negative) 04/22/22 13:20 Ur Leukocyte Esterase Negative (Negative) 04/22/22 13:20 Discharge Plan Discharge Patient Disposition: Home Clinical Impression: Fall, Vasovagal episode Condition: Stable Prescriptions: No Action fluticasone propion-salmeterol [Advair Diskus] 250-50 mcg/dose blister with device 1 inh inhalation BID Qty: 60 3RF hydrocodone-acetaminophen 10-325 mg tablet 1 - 2 tab PO Q4H PRN (Reason: Post-op pain) 5 Days Qty: 40 0RF ondansetron 4 mg tablet,disintegrating 4 mg PO Q6H PRN (Reason: nausea and vomiting) Qty: 30 0RF (DME) Intraoperative Neuromonitoring See Rx Instructions .Route .MEDSUPPLY Qty: 1 0RF Rx Instructions: As directed ibuprofen 800 mg Tablet 1,600 mg PO Q6H PRN (Reason: Pain) [place] 10-325 mg Tablet 1 tab PO Q8H PRN (Reason: Pain) Tylenol Ex Str Rapid Release 500 mg Tablet 1,000 mg PO Q6H PRN (Reason: Pain) Effexor XR 75 mg capsule,extended release 24hr 75 mg PO BEDTIME trazodone 150 mg Tablet 150 mg PO BEDTIME PRN (Reason: Insomnia) albuterol sulfate [Ventolin HFA] 90 mcg/actuation HFA aerosol inhaler 2 puff INHALATION QID PRN (Reason: Shortness Of Breath) Discharge Orders: Discharge ED (Routine); Ordered 04/22/22 Ordered By: Bharath Forbes Referrals: Denise Santana MD [Primary Care Provider] - Discharge Diet: Usual diet Discharge Activity: Increase activity as tolerated Patient Instructions: Opioid Safety, Pain Management Activity Restrictions/Additional Instructions: Years you were seen today after a fall. Your laboratory tests and scans are unremarkable. Suspect that your fall from the edge of the bed is precipitated by vasovagal episode related to the dry heaving. Avoid exertional activities increase fluid intake next few days follow-up as needed. 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
--- NOTE | 2022-04-22 13:19 | CT_ITS ---
WS: [email or web address] CT FACIAL BONES HISTORY: trauma TECHNIQUE: Images obtained from the supraorbital location through the mandible. Soft tissue and bone windows are reviewed. Coronal and sagittal reformats have also been submitted. DLP: 1870.[address] scans at [facility] use at least one of these dose optimization techniques: automated e xposure control; mA and/or kV adjustment per patient size (includes targeted exams where dose is matc hed to clinical indication); or iterative reconstruction. COMPARISON: None available. Facial bones are intact. There is a small amount of edema along the central nasal bones. No fractures . No significant deviation. Zygomatic arches are normal. Orbits and globes are normal. No air-fluid l evels or blood within the sinus cavities. No soft tissue abnormalities or hematoma. CT/CT facial bones wo con* [id number] IMPRESSION: No facial bone fractures.
--- NOTE | 2022-04-22 13:19 | CT_ITS ---
WS: [email or web address] CT CERVICAL SPINE HISTORY: trauma TECHNIQUE: Contiguous 2.5 mm axial imaging performed through the entire cervical spine. Sagittal and coronal reformats also performed. All CT scans at [facility] use at least one of these dose o ptimization techniques: automated exposure control; mA and/or kV adjustment per patient size (include s targeted exams where dose is matched to clinical indication); or iterative reconstruction. DLP: 1870.66 mGy.cm COMPARISON: None available. Normal cervical alignment. Craniocervical junction, atlantodental interval and C1-C2 alignment is nor mal. C2-C3: Normal. C3-C4: Normal. C4-C5: Normal. C5-C6: Normal. C6-C7: Normal. C7-T1: Normal. Soft tissues are normal. Lung apices are clear. CT/CT cervical spin wo con* [id number] IMPRESSION: Normal cervical spine.
--- NOTE | 2022-04-22 13:19 | CT_ITS ---
WS: [email or web address] CT HEAD NONCONTRAST HISTORY: trauma TECHNIQUE: Contiguous axial imaging performed through the brain in 2.5 mm imaging. Bone and soft tiss ue windows. Sagittal and coronal reformats reviewed. All CT scans at [facility] use at least one of these dose optimization techniques: automated exposure control; mA and/or kV adjustment per pa tient size (includes targeted exams where dose is matched to clinical indication); or iterative recon struction. DLP: 1870.66 mGy.cm COMPARISON: None available. No acute intracranial hemorrhage, midline shift or mass effect. No atrophy or prior infarcts or herniation. Ventricles: Normal size with no hydrocephalus. Paranasal sinuses: As visualized are clear. Mastoid air cells: Well pneumatized. Calvarium and scalp: Skull is intact with no soft tissue edema or swelling. CT/CT head wo con* [id number] IMPRESSION: Negative head CT.
[2022-04-22] MEDS: sodium chloride 0.9% 1,000 ML 999 ML IV (13:20)
[2022-04-22 13:40] LABS: Basophils % 0.3 %; Eosinophils # 0.1 10^3/uL (0.0-0.8); Eosinophils % 0.6 %; Hematocrit 39.1 % (37.0-47.0); Hemoglobin 12.5 g/dL (11.5-15.3); Lymphocytes # 1.7 10^3/uL (0.8-4.8); Lymphocytes % 14.9 %; Mean Platelet Volume 9.2 fL (7.4-10.4); Monocytes # 0.5 10^3/uL (0.2-0.9); Monocytes % 4.4 %; Neutrophils # 9.24 10^3/uL (1.8-7.7); Neutrophils % 79.4 %; Nucleated Red Blood Cells % 0 %; Platelet Count 503 10^3/cmm (130-400); Red Blood Count 4.16 10^6/uL (4.1-5.3); Red Cell Distribution Width 14.9 % (12.1-15.1); White Blood Count 11.6 10^3/uL (4.0-10.0)
[2022-04-22 13:41] VITALS: BP 122/58; PULSE 85; RESP 16; O2SAT 95
[2022-04-22 13:47] LABS: Add Urine Microscopic? NO; Charge for UA Resulting for Rev
[2022-04-22 13:59] LABS: Bilirubin Urine Neg (Negative); Blood Urine Neg (Negative); Glucose Urine UA Norm (Normal); Ketones Urine Negative (Negative); Leukocyte Esterase Urine Negative (Negative); Nitrate Urine Negative (Negative); Protein Urine Neg (Negative); Specific Gravity, Urine 1.015 (1.005-1.030); Urine Appearance Clear (CLEAR); Urine Color Straw (Yellow); Urobilinogen Urine Norm (Negative); pH Urine 7 (5-7)
[2022-04-22 14:20] LABS: Alanine Aminotransferase 10 U/L (0-33); Albumin Level 4.6 g/dL (3.5-5.2); Alkaline Phosphatase 103 U/L (35-105); Anion Gap 17.7 (5-19); Aspartate Amino Transferase 14 U/L (0-32); Blood Urea Nitrogen 10 mg/dL (6-20); Calcium 9.5 mg/dL (8.5-10.5); Carbon Dioxide 25 mmol/L (22-29); Chloride 99 mmol/L (98-107); Globulin 3.5 g/dL (1.3-4.6); Glomerular Filtration Rate 110.2 mL/min (90-130); Glucose 99 mg/dL (65-115); Osmolality Calculated 285 mOsm/kg (285-295); Potassium 3.7 mmol/L (3.5-5.1); Sodium 138 mmol/L (136-145); Total Bilirubin 0.2 mg/dL (0.15-1.2); Total Protein 8.1 g/dL (6.6-8.7)
[2022-04-22 14:57] VITALS: BP 108/78; PULSE 73; RESP 16; O2SAT 95
[2022-04-22 15:23] VITALS: BP 102/88; BP 108/69; BP 124/73; PULSE 82; PULSE 88; PULSE 94
[2022-04-22] MEDS: tetanus-dipt-pertussis 0.5 mL SDV IM (16:10)
[2022-04-22 16:18] VITALS: BP 108/78; PULSE 73; RESP 16; O2SAT 95
== END 2022-04-22 16:20 | disposition home or self-care (01) ==
PROVIDERS: Emergency Provider Family Medicine; PCP Family Medicine
DX: R55 Syncope and collapse (principal); F17.210 Nicotine dependence, cigarettes, uncomplicated; J44.9 Chronic obstructive pulmonary disease, unspecified; Z23 Encounter for immunization
CPT/HCPCS: 70450; 70486; 71045; 72125; 80053; 81003; 85025; 90471; 90715; 93005; 96360; 99285; J7030

== ENCOUNTER → 2022-04-25 13:33 | Outpatient (BNVA) | payer MEDICAID, SELFPAY | PROVIDERS: PCP Family Medicine; Visit Provider Physician Assistant | DX: Z98.1 Arthrodesis status (principal) | CPT/HCPCS: 72100; 99024 ==

== ENCOUNTER 2022-04-30 14:43 | Outpatient (CLI) | payer MEDICAID, SELFPAY ==
--- NOTE | 2022-04-30 15:00 | CT_ITS ---
WS: [email or web address] CT LUMBAR SPINE, noncontrast. HISTORY: W19.XXXA - Unspecified fall, initial encounter TECHNIQUE: Contiguous 2.0 mm axial imaging are performed. Sagittal and coronal reformats are submitte d and reviewed. All CT scans at [facility] use at least one of these dose optimization techni ques: automated exposure control; mA and/or kV adjustment per patient size (includes targeted exams w here dose is matched to clinical indication); or iterative reconstruction. IV contrast: None DLP: 588.20 mGy.cm COMPARISON: Lumbar spine radiographs 04/25/2022 Patient is status post posterior lumbar fusion from L4 to S1. Interbody spacers at L4-5 and L5-S1. Th e interbody spacer at L4-5 extends posterior to the lumbar vertebral bodies by 5.6 mm. Posterior migr ation of the interbody spacer appears new since 04/10/2022. Large laminectomy defect at L4-5. [place] ed but nonfused bone graft. L1-2: Normal. L2-3: Normal. L3-4: Normal. L4-5: Large laminectomy defect on the LEFT. Postsurgical changes in the soft tissues. L5-S1: Large bilateral laminectomy defect. Artifact from the patient's hardware. Visualized retroperitoneum is normal. CT/CT lumbar spine wo con* [id number] IMPRESSION: 1. Status post posterior lumbar fusion from L4 to S1. 2. Posterior migration of the interbody spacer at L4-5 x 5.6 mm encroaching in to the thecal sac. 3. Large posterior laminectomy defects at L4-5.
== END 2022-04-30 14:44 | disposition home or self-care (01) ==
LOC: RAD 14:46
PROVIDERS: PCP Family Medicine; Visit Provider Orthopaedic Surgery
DX: Z98.1 Arthrodesis status (principal); W19.XXXA Unspecified fall, initial encounter
CPT/HCPCS: 72131

== ENCOUNTER → 2022-05-02 08:21 | Outpatient (BNVA) | payer MEDICAID, SELFPAY | PROVIDERS: PCP Family Medicine; Visit Provider Physician Assistant | DX: Z53.9 Procedure and treatment not carried out, unspecified reason (principal) | CPT/HCPCS: 99213 ==

== ENCOUNTER → 2022-05-16 09:19 | Outpatient (BNVA) | payer MEDICAID, SELFPAY | PROVIDERS: PCP Family Medicine; Visit Provider Orthopaedic Surgery | DX: Z47.89 Encounter for other orthopedic aftercare (principal); Z98.1 Arthrodesis status | CPT/HCPCS: 72100; 99024 ==

== ENCOUNTER → 2022-06-27 10:57 | Outpatient (BNVA) | payer MEDICAID, SELFPAY | PROVIDERS: PCP Family Medicine; Visit Provider Orthopaedic Surgery | DX: Z47.89 Encounter for other orthopedic aftercare (principal); Z98.1 Arthrodesis status | CPT/HCPCS: 72100; 99024; 99213 ==

== ENCOUNTER 2022-07-15 06:00 | Outpatient (RCR) | payer MEDICAID, SELFPAY | END 2022-08-04 23:59 | disposition home or self-care (01) | LOC: TPT 06:00 | PROVIDERS: PCP Family Medicine; Visit Provider Orthopaedic Surgery | DX: G89.29 Other chronic pain (principal); M54.50 Low back pain, unspecified | CPT/HCPCS: 97110; 97161 ==

== ENCOUNTER 2022-08-05 06:00 | Outpatient (RCR) | payer MEDICAID, SELFPAY | END 2022-09-04 23:59 | disposition home or self-care (01) | LOC: TPT 06:00 | PROVIDERS: PCP Family Medicine; Visit Provider Orthopaedic Surgery | DX: M54.50 Low back pain, unspecified (principal); G89.29 Other chronic pain | CPT/HCPCS: 97110; 97164; 97530 ==

== ENCOUNTER → 2022-08-15 10:36 | Outpatient (BNVA) | payer MEDICAID, SELFPAY | PROVIDERS: PCP Family Medicine; Visit Provider Orthopaedic Surgery | DX: Z47.89 Encounter for other orthopedic aftercare (principal); Z98.1 Arthrodesis status | CPT/HCPCS: 72100; 99213 ==

== ENCOUNTER 2022-09-05 06:00 | Outpatient (RCR) | payer MEDICAID, SELFPAY | END 2022-10-04 23:59 | disposition home or self-care (01) | LOC: TPT 06:00 | PROVIDERS: PCP Family Medicine; Visit Provider Orthopaedic Surgery | DX: M54.50 Low back pain, unspecified (principal); G89.29 Other chronic pain | CPT/HCPCS: 97110; 97530 ==

== ENCOUNTER → 2022-09-24 11:48 | Outpatient (BNVA) | payer MEDICAID, SELFPAY | PROVIDERS: PCP Family Medicine; Visit Provider Family Medicine | DX: Z13.6 Encounter for screening for cardiovascular disorders (principal); Z72.51 High risk heterosexual behavior; F41.8 Other specified anxiety disorders | CPT/HCPCS: 80053; 80061; 80074; 84443; 85025; 86592; 87491; 87591; 87661; 87806 ==

== ENCOUNTER 2022-10-05 06:00 | Outpatient (RCR) | payer MEDICAID, SELFPAY | END 2022-11-04 23:59 | disposition home or self-care (01) | LOC: TPT 06:00 | PROVIDERS: PCP Family Medicine; Visit Provider Orthopaedic Surgery | DX: M54.50 Low back pain, unspecified (principal); G89.29 Other chronic pain | CPT/HCPCS: 97110; 97164; 97530 ==

== ENCOUNTER 2022-11-05 06:00 | Outpatient (RCR) | payer MEDICAID, SELFPAY | END 2022-12-05 23:59 | disposition home or self-care (01) | LOC: TPT 06:00 | PROVIDERS: PCP Family Medicine; Visit Provider Orthopaedic Surgery | DX: M54.50 Low back pain, unspecified (principal); G89.29 Other chronic pain | CPT/HCPCS: 97110 ==

== ENCOUNTER → 2022-11-14 10:41 | Outpatient (BNVA) | payer MEDICAID, SELFPAY | PROVIDERS: PCP Family Medicine; Visit Provider Orthopaedic Surgery | DX: Z98.1 Arthrodesis status (principal); M54.16 Radiculopathy, lumbar region | CPT/HCPCS: 72100; 99214 ==

== ENCOUNTER 2022-12-05 10:58 | Outpatient (CLI) | payer MEDICAID, SELFPAY ==
--- NOTE | 2022-12-05 11:00 | CT_ITS ---
WS: [id number] CT LUMBAR SPINE, noncontrast. HISTORY: back pain TECHNIQUE: Contiguous 2.0 mm axial imaging are performed. Sagittal and coronal reformats are submitte d and reviewed. All CT scans at [facility] use at least one of these dose optimization techni ques: automated exposure control; mA and/or kV adjustment per patient size (includes targeted exams w here dose is matched to clinical indication); or iterative reconstruction. IV contrast: None DLP: 411.20 mGy.cm COMPARISON: 04/30/2022 Status post posterior lumbar fusion from L4-S1. Interbody spacers at L4-5 and L5-S1. The L4 interbody spacer extends posterior from the disc by 5.4 mm, similar to the prior study of 04/30/2022. Normal po sition of the L5-S1 interbody spacer. No fractures. Disc spaces are well-maintained. L1-2: Normal. L2-3: Normal. L3-4: Normal. L4-5: Large posterior laminectomy defect. Interbody spacer encroaches upon the thecal sac. L5-S1: Large posterior laminectomy defect. No stenosis. Visualized retroperitoneum is normal. IMPRESSION: 1. Status post posterior lumbar fusion from L4-S1 with large laminectomy defects. 2. Posterior migration of the interbody spacer at L4 5 x 5.4 mm. Similar to the prior study.
== END 2022-12-05 10:59 | disposition home or self-care (01) ==
LOC: RAD 11:00
PROVIDERS: PCP Family Medicine; Visit Provider Orthopaedic Surgery
DX: M54.16 Radiculopathy, lumbar region (principal); Z98.1 Arthrodesis status
CPT/HCPCS: 72131

== ENCOUNTER 2022-12-06 06:00 | Outpatient (RCR) | payer MEDICAID, SELFPAY | END 2023-01-04 23:59 | disposition home or self-care (01) | LOC: TPT 06:00 | PROVIDERS: PCP Family Medicine; Visit Provider Orthopaedic Surgery | DX: M54.50 Low back pain, unspecified (principal); G89.29 Other chronic pain | CPT/HCPCS: 97110; 97164 ==

== ENCOUNTER → 2022-12-12 08:47 | Outpatient (BNVA) | payer MEDICAID, SELFPAY | PROVIDERS: PCP Family Medicine; Visit Provider Orthopaedic Surgery | DX: M54.50 Low back pain, unspecified (principal) | CPT/HCPCS: 99214 ==

== ENCOUNTER 2023-01-05 06:00 | Outpatient (RCR) | payer MEDICAID, SELFPAY | END 2023-02-04 23:59 | disposition home or self-care (01) | LOC: TPT 06:00 | PROVIDERS: PCP Family Medicine; Visit Provider Orthopaedic Surgery | DX: M54.50 Low back pain, unspecified (principal); G89.29 Other chronic pain | CPT/HCPCS: 97110; 97530 ==

== ENCOUNTER → 2023-01-28 10:30 | Outpatient (BNVA) | payer MEDICAID, SELFPAY | PROVIDERS: PCP Family Medicine; Visit Provider Physician Assistant | DX: Z98.1 Arthrodesis status (principal); Z47.89 Encounter for other orthopedic aftercare | CPT/HCPCS: 72100; 99213 ==

== ENCOUNTER → 2023-09-08 13:12 | Outpatient (BNVA) | payer MEDICAID, SELFPAY | PROVIDERS: PCP Family Medicine; Visit Provider Family Medicine | DX: Z72.51 High risk heterosexual behavior (principal); D64.9 Anemia, unspecified; Z13.6 Encounter for screening for cardiovascular disorders; E55.9 Vitamin D deficiency, unspecified; E03.9 Hypothyroidism, unspecified | CPT/HCPCS: 80053; 80061; 80074; 82306; 83540; 84443; 85025; 86592; 87491; 87591; 87806 ==

== ENCOUNTER 2023-11-05 06:00 | Outpatient (RCR) | payer BC, MEDICAID, SELFPAY | END 2023-11-05 23:59 | disposition home or self-care (01) | LOC: TPT 06:00 | PROVIDERS: Visit Provider Orthopaedic Surgery | DX: M54.9 Dorsalgia, unspecified (principal); G89.29 Other chronic pain | CPT/HCPCS: 97162 ==

== ENCOUNTER 2024-04-27 07:27 | Outpatient (CLI) | payer BC, MEDICAID, SELFPAY ==
[2024-04-27 07:56] VITALS: PULSE 81; RESP 18; O2SAT 98
[2024-04-27] MEDS: albuterol 2.5 mg/3 mL Neb INHALATION (07:56)
[2024-04-27 08:01] VITALS: PULSE 97
== END 2024-04-27 07:28 | disposition home or self-care (01) ==
PROVIDERS: PCP Family Medicine; Visit Provider Nurse Practitioner Family
DX: J44.9 Chronic obstructive pulmonary disease, unspecified (principal); R94.2 Abnormal results of pulmonary function studies
CPT/HCPCS: 94060; J7613

== ENCOUNTER 2024-05-06 07:33 | Day surgery (SDC) | payer BC, MEDICAID, SELFPAY ==
[2024-05-06] VITALS (13 sets, daily range): BP systolic 112–141; BP diastolic 70–89; PULSE 66–125; RESP 12–28; TEMP 36.1–36.6; O2SAT 91–100; BMI 32.8
[2024-05-06] MEDS: sodium chloride 0.9% 1,000 ML 30 ML IV (08:18)
--- NOTE | 2024-05-06 08:18 | W.PM.OPSUD ---
Surgery/Procedure H&P Update DATE OF PROCEDURE: May 06, 2024 DATE H&P PERFORMED: 04/29/24 H&P UPDATE INFORMATION: I have reviewed H&P completed within last 30 days, I have examined patient prior to procedure and No changes to prior documentation PLANNED PROCEDURE: Operation Date: 05/06/24 08:55 Proposed Procedures p Laparoscopic Inguinal Hernia Repair with mesh [id number], K40.20(Bilateral) - Alex Singh DO
[2024-05-06] MEDS: scopolamine 1 mg PATCH 1 PATCH TRANSDERMA (08:33)
[2024-05-06] MEDS: ceFAZolin 2,000 mg SDV 2000 MG IVP (09:01)
[2024-05-06] MEDS: tranexamic acid 1,000 mg/10mL SDV 1000 MG IV (09:35)
[2024-05-06] MEDS: lidocaine-epi 2% PF 1:200,000 20 mL SDV XX (09:36)
--- NOTE | 2024-05-06 09:56 | PM.OP ---
Operative Report Date of procedure: May 06, 2024 Surgeon: Alex Singh DO Procedure: Surgeon: Alex Singh DO Procedure: Pre-op diagnosis: Bilateral inguinal hernias Post-op diagnosis: Bilateral direct inguinal hernias Procedure done: Laparoscopic (TEPP) repair of right inguinal hernia with mesh Laparoscopic (TEPP) repair of left inguinal hernia with mesh Implants: Left and right extra-large 3D max Bard mesh is Specimens removed/disposition: None Surgeon: Alex Singh DO Anesthesia: General and Local Estimated blood loss (mL): 5 Complications: None apparent Brief History: This is a very pleasant 43-year-old female who presented my office with bilateral inguinal hernias. Laparoscopic repair with mesh was indicated. The risks and benefits were explained and documented. Procedure: Patient was wheeled into the operative room and placed on the OR table in a supine position. Abdomen was inspected prepped and draped in usual sterile fashion. Time-out was performed and all present were in agreement. A 15 blade scalpel was used to make 1.2 centimeter incision infraumbilically. Combination of sharp and blunt dissection was performed down to the anterior rectus sheath which was opened sharply. The dissecting balloon was then inserted into the space of Retzius and blown up. We put the camera into the port and identified that we were in the correct space. I then placed 2 5 millimeter trocars suprapubically in the midline. I then used endokitners to bluntly dissect in the space of Retzius out laterally. A direct inguinal hernia was identified on the right. Blunt dissection was performed to dissect down the hernia sac out of the defect. The round ligament was then divided in half and the and the end was cauterized. An extra-large 3D max Bard right inguinal mesh was then placed into the space of Retzius. The mesh was unrolled and tacked once medially at the pubic bone. The mesh laid out nicely over the defect. A direct inguinal hernia was identified on the left. Blunt dissection was performed to dissect down the hernia sac out of the defect. The round ligament was then divided in half and the and the end was cauterized. An extra-large 3D max Bard left inguinal mesh was then placed into the space of Retzius. The mesh was unrolled and tacked once medially at the pubic bone. The mesh laid out nicely over the defect. Hernia sacs were held underneath the meshes as the insufflation was released. Incisions were closed with 4 O Vicryl in a subcuticular interrupted fashion. Skin glue was applied. Patient tolerated the procedure well.
[2024-05-06] MEDS: fentaNYL 50 mcg/mL INJ 2mL IVP (10:15)
[2024-05-06] MEDS: HYDROcodone-acetaminophen 7.5-325 mg Tablet 1 TAB PO (11:43)
--- NOTE | 2024-05-06 12:20 | ANE.PACU2 ---
Inpatient post-anesthesia follow up: Airway intact: Yes Vital signs: Temperature 97.9 F Pulse Rate 84 Respiratory Rate 16 Blood Pressure 112/89 Pulse Oximetry 97 Oxygen Delivery Me thod Room Air Oxygen Flow Rate 5 Fraction of Inspir ed Oxygen Hydration adequate: Yes Nausea and vomiting: No Pain level: 1 Mental status: Baseline
== END 2024-05-06 12:20 | disposition home or self-care (01) ==
PROVIDERS: PCP Nurse Practitioner Family; Visit Provider Surgery
PROC: (CPT 49650; principal; 2024-05-06 08:55)
DX: K40.20 Bilateral inguinal hernia, without obstruction or gangrene, not specified as recurrent (principal); J44.9 Chronic obstructive pulmonary disease, unspecified; F17.200 Nicotine dependence, unspecified, uncomplicated; Z88.8 Allergy status to other drugs, medicaments and biological substances; Z91.048 Other nonmedicinal substance allergy status; Z79.899 Other long term (current) drug therapy
CPT/HCPCS: 49650; 51702; C1781; J0131; J0690; J1100; J1200; J2250; J2405; J2704; J3010; J3490; J7030

== ENCOUNTER 2024-10-28 10:34 | Outpatient (CLI) | payer BC, MEDICAID, SELFPAY ==
--- NOTE | 2024-10-28 10:40 | MM_ITS ---
WS: [id number] BILATERAL SCREENING DIGITAL TOMOSYNTHESIS MAMMOGRAM WITH CAD HISTORY: SCREENING COMPARISON: 10/21/2023, 02/19/2022 Bilateral CC and MLO views with tomosynthesis and synthetic mammography submitted. Computer aided detection analyzed. Breast composition: The breasts are heterogeneously dense, which may obscure small masses. No suspicious masses, microcalcifications or architectural distortion. Benign calcifications in each breast. MM/MM scr tomosynthesis [id number] IMPRESSION: BI-RADS: 2 - Benign FOLLOW UP: 1 Year Follow-up
== END 2024-10-28 10:35 | disposition home or self-care (01) ==
LOC: MOBLMAM 10:41
PROVIDERS: PCP Nurse Practitioner Family; Visit Provider Nurse Practitioner Family
DX: Z12.31 Encounter for screening mammogram for malignant neoplasm of breast (principal); R92.333 Mammographic heterogeneous density, bilateral breasts; R92.1 Mammographic calcification found on diagnostic imaging of breast
CPT/HCPCS: 77063; 77067

== ENCOUNTER 2024-11-10 08:30 | Outpatient (CLI) | payer BC, MEDICAID, SELFPAY ==
--- NOTE | 2024-11-10 09:00 | FL_ITS ---
WS: [id number] FL barium swallow modifd 03089 REASON FOR EXAM: Food sticking FLUOROSCOPY TIME: 2min [id number] # OF SPOT FILMS: 0 TECHNIQUE: Examination was supervised by the speech therapy department. Patient was examined in the sitting upright lateral projection. Swallowing of barium of multiple consistencies was monitored fluoroscopically and video recorded. FINDINGS: No aspiration. No laryngeal vestibule penetration by contrast. There was mild impedance/delay of the passage of the barium tablet from the distal esophagus into the stomach. FL/FL barium swallow modifd [id number] IMPRESSION: A detailed report of the swallowing will be rendered by the speech therapy depa rtment. No aspiration or penetration. Mild impedance of the barium tablet transit of th e distal esophagus.
== END 2024-11-10 08:31 | disposition home or self-care (01) ==
LOC: RAD 08:31
PROVIDERS: PCP Nurse Practitioner Family; Visit Provider Surgery
DX: R13.10 Dysphagia, unspecified (principal)
CPT/HCPCS: 74230; 92611

== ENCOUNTER 2024-11-18 10:50 | Outpatient (CLI) | payer BC, MEDICAID, SELFPAY ==
--- NOTE | 2024-11-18 10:57 | XR_ITS ---
WS: [id number] Cervical spine, 7 views including both obliques and lateral views in flexion, extension and neutral position, 11/18/2024 Clinical Data: NECK PAIN Comparison: Cervical spine, 01/18/2021 Findings: No compression fractures are seen. The disc heights are normal. There is no prevertebral soft tissue swelling. The odontoid is unremarkable. The oblique images show no foraminal encroachment. On flexion and extension there is no instability. The soft tissues of the neck and the lung apices are normal. XR/XR cervical spine min 6V 81731 Impression: 1. Negative cervical spine. 2. No foraminal narrowing on oblique images. 3. No instability on flexion or extension.
== END 2024-11-18 10:51 | disposition home or self-care (01) ==
PROVIDERS: PCP Nurse Practitioner Family; Visit Provider Nurse Practitioner Family
DX: M54.2 Cervicalgia (principal)
CPT/HCPCS: 72052

== ENCOUNTER 2024-11-25 10:45 | Day surgery (SDC) | payer BC, MEDICAID, SELFPAY ==
[2024-11-25 11:05] VITALS: BP 116/53; PULSE 69; RESP 18; TEMP 36.4; O2SAT 98; BMI 29.0
--- NOTE | 2024-11-25 11:24 | P.HPUD_ITS ---
Surgery/Procedure H&P Update DATE OF PROCEDURE: November 25, 2024 DATE H&P PERFORMED: 10/27/24 H&P UPDATE INFORMATION: I have reviewed H&P completed within last 30 days, I have examined patient prior to procedure, No changes to prior documentation, H&P is in [facility] EMR on date indicated and Risks and benefits of the procedure reviewed PLANNED PROCEDURE: Operation Date: 11/25/24 12:20 Proposed Procedures p EGD Dilation W/ Balloon 35902, R13.10(Not Applicable) - Ramón Marcus MD
[2024-11-25 13:22] VITALS: BP 108/68; PULSE 96; RESP 10; TEMP 36.1; O2SAT 98
[2024-11-25 13:32] VITALS: BP 102/65; PULSE 70; RESP 18; O2SAT 93
[2024-11-25 13:42] VITALS: BP 102/59; PULSE 77; RESP 15; O2SAT 95
--- NOTE | 2024-11-25 15:32 | ANE.PACU2 ---
Inpatient post-anesthesia follow up: Airway intact: Yes Vital signs: Temperature 97.0 F Pulse Rate 77 Respiratory Rate 15 Blood Pressure 102/59 Pulse Oximetry 95 Oxygen Delivery Me thod Room Air Oxygen Flow Rate Fraction of Inspir ed Oxygen Hydration adequate: Yes Nausea and vomiting: No Pain level: 1 Mental status: Baseline
== END 2024-11-25 13:48 | disposition home or self-care (01) ==
PROVIDERS: PCP Nurse Practitioner Family; Visit Provider Surgery
DX: R13.10 Dysphagia, unspecified (principal); K29.70 Gastritis, unspecified, without bleeding; J44.9 Chronic obstructive pulmonary disease, unspecified; F31.81 Bipolar II disorder; F12.90 Cannabis use, unspecified, uncomplicated; F43.12 Post-traumatic stress disorder, chronic
CPT/HCPCS: 43239; 88305; J2704; J7030

== ENCOUNTER 2024-12-23 08:36 | Day surgery (SDC) | payer BC, MEDICAID, SELFPAY ==
--- NOTE | 2024-12-20 09:02 | PC.NURSE ---
During the TPO Suicide Assessment pt answered yes to question pertaining to wishing they were , and harming others. When asked about a plan she stated years ago as a teenager but has never acted upon it. Pt stated [facility] and had a appointment in March. Consulted with my Charge Nurse and Solutions Delivery Consultant, advised to contact Siddharth. Called the facility, visited with Mercedez and relayed the situation. She recommended the pt to call the Crisis number [phone] or the office number [phone] and see if she could come in sooner. Call the pt back and encouraged her to call the either number for Help. Informed Dr Marcus of this situation with no verbal orders.
[2024-12-23 08:45] VITALS: BP 106/80; PULSE 72; RESP 16; TEMP 36.1; O2SAT 98; BMI 30.9
--- NOTE | 2024-12-23 09:19 | P.ANESASSM_ITS ---
Pre-Anesthetic Assessment Height/Weight: Height 1.55 m Weight 74.389 kg Temp Pulse Resp BP Pulse Ox O2 Del Method 97 F L 72 16 106/80 98 Room Air 12/23/24 08:45 12/23/24 08:45 12/23/24 08:45 12/23/24 08:45 12/23/24 08:45 12/23/24 08:45 Operation Date: 12/23/24 09:55 Proposed Procedures p Colonoscopy 79040 G0105 R19.4(Not Applicable) - Ramón Marcus MD Familial anesthetic complications: PONV Was Beta Nel taken within 24 hours: N/A Was Clonidine taken within 24 hours: N/A Last intake: Intake Last Liquid Date 12/22/24 Last Liquid Time 22:00 Last Solid Date 12/22/24 Last Solid Time 00:36 Social Tobacco (Marijuana daily) 1 pack(s) per day Exam alert, oriented x 3, clear to auscultation bilaterally and regular rate & rhythm Airway Submandibular: within normal limits Cervical ROM: within normal limits Mallampati: Class II Dentition: false History/ROS No significant history except as noted and No significant complaints Pulmonary Chronic Obstructive Pulmonary Disease, Cough and Exertional Dyspnea CV/HEM Arrythmia and Coronary Artery Disease None reported Hepatic None reported GI Gastroesophageal Reflux Disease (No problems this morning) and Hiatal Hernia Metabolic None reported Musc/skel Fibromyalgia, Lower Back Pain and Osteoarthritis/DJD Spine surgery x2 Neuropsych Anxiety, Depression and Seizure (>10 years ago. Saw neurologist, nothing found) Anesthetic Plan ASA status: 3 Anesthesia: Anesthesia Evaluation, General and MAC Risk of > 500 ml blood loss (7ml/kg in children): No Medications/Allergies Home Medications ?Medication ?Instructions ?Recorded ?Confirmed ?Last Taken ?Type nebulizer #1 ea 10/01/22 12/23/2412/06 Rx buprenorphine 8 mg-naloxone 2 mg 1 film sublingual 1XD 05/05/24 12/23/24 12/22/24 History sublingual film (Suboxone) albuterol sulfate 2.5 mg/3 mL 2.5 mg inhalation Q8H KS N 11/23/24 12/23/24 12/22/24 History (0.083 %) solution for nebulization Shortness Of Breat h Or Wheezing albuterol sulfate 90 mcg/actuation 2 puff inhalation D AILY PRN 11/23/24 12/23/24 12/22/24 History aerosol inhaler (Ventolin HFA) Shortness Of Breath Or Wheezing pantoprazole 40 mg tablet,delayed 40 mg PO BID 30 days #60 tabs 11/25/24 12/23/24 12/22/24 Rx release ondansetron 8 mg disintegrating 8 mg PO Q8H PRN nausea and 12/07/24 12/23/24 12/22/24 Rx tablet vomiting #3 tabs Allergies Allergy/AdvReac Type Severity Reaction Status Date / Time paliperidone (From Invega) Allergy Intermediate makes her Verified 12/23/24 08:46 eyes blink extra adhesive tape Allergy ALGY-Bliste Verified 12/23/24 08:46 r Iodinated Contrast Media Allergy airway Verified 12/23/24 08:46 ziprasidone (From Geodon) AdvReac ADR-Shakine Verified 12/23/24 08:46 ss Current Medications Generic Name Dose Route Start Last Admin Trade Name Freq PRN Reason Stop Dose Admin Sodium Chloride 1,000 mls @ 15 mls/hr 12/23/24 08:39 12/23/24 08:56 Sodium Chloride 0.9% IV 12/24/24 08:38 15 mls/hr .Q24H PRN Administration COLONOSCOPY FLUIDS PFSH Anesthesia Medical History Other stimulant dependence, in remission Bipolar II disorder Other stimulant dependence, in remission Cannabis dependence, uncomplicated Chronic obstructive pulmonary disease On high dose antipsychotic drug therapy History of thyroid disorder Reports had been on medication in the past Greater trochanteric bursitis of both hips Other stimulant dependence, uncomplicated Post-traumatic stress disorder, chronic Bipolar disorder, current episode manic severe with psychotic features Surgical History Hx of bilateral inguinal hernia repair S/P cone biopsy of cervix (~2002) H/O vaginal surgery (07/18/11) Anterior colporrhaphy, Single incision sling. Performed by Dr. Zambrano and Dr. Mancini at [facility] in [place], [place] H/O vaginal surgery (02/20/12) Posterior colporrhaphy. Performed by Dr. Zambrano and Dr. Mancini at [facility] in [place], [place] H/O total vaginal hysterectomy (11/01/14) TVH with uterosacral ligament suspension. Performed by Dr. Mancini at [facility] in [place], [place] Vaginal cuff dehiscence (05/01/15) Repair of vaginal cuff dehiscence. DX: Vaginal cuff dehiscence with small lizzy wel evisceration into vagina. Performed by Dr. Mancini at [facility] in [place], [place]. History of umbilical hernia repair (09/22/19) Performed by Dr. Chiu at [facility] in [place], [place] Family History Brother Anesthesia complication nausea Grandmother Cancer esophageal Other Diabetes Social History Smoking and tobacco/nicotine status: never used tobacco/nicotine Second hand smoke exposure: No Alcohol intake: current Alcohol intake frequency: other Substance/Drug Use: current Other substance/drug use details: has medical card Lives independently: Yes Household members: children Marital status: Single service: No Current occupational status: unemployed Current gender identity: Female Special kimberly needs: No Agree to transfusion: Yes
--- NOTE | 2024-12-23 09:32 | W.PM.OPSUD ---
Surgery/Procedure H&P Update DATE OF PROCEDURE: December 23, 2024 DATE H&P PERFORMED: 12/07/24 H&P UPDATE INFORMATION: I have reviewed H&P completed within last 30 days, I have examined patient prior to procedure, No changes to prior documentation, Changes to prior documentation as noted here and Risks and benefits of the procedure reviewed PLANNED PROCEDURE: Operation Date: 12/23/24 09:55 Proposed Procedures p Colonoscopy 01870 G0105 R19.4(Not Applicable) - Ramón Marcus MD
--- NOTE | 2024-12-23 09:48 | PC.NURSE ---
[id number]
[2024-12-23 09:58] VITALS: BP 97/57; PULSE 73; RESP 12; TEMP 36.2; O2SAT 99
[2024-12-23 10:11] VITALS: BP 115/63; PULSE 79; RESP 16; O2SAT 98
--- NOTE | 2024-12-23 10:25 | ANE.PACU2 ---
Inpatient post-anesthesia follow up: Airway intact: Yes Vital signs: Temperature 97.2 F Pulse Rate 79 Respiratory Rate 16 Blood Pressure 115/63 Pulse Oximetry 98 Oxygen Delivery Me thod Room Air Oxygen Flow Rate Fraction of Inspir ed Oxygen Hydration adequate: Yes Nausea and vomiting: No Pain level: 1 Mental status: Baseline
== END 2024-12-23 10:24 | disposition home or self-care (01) ==
PROVIDERS: PCP Nurse Practitioner Family; Visit Provider Surgery
PROC: 0DJD8ZZ Inspection of Lower Intestinal Tract, Via Natural or Artificial Opening Endoscopic (ICD-10-PCS; CPT 45378; principal; 2024-12-23 09:55)
DX: R19.4 Change in bowel habit (principal); K21.9 Gastro-esophageal reflux disease without esophagitis; F31.81 Bipolar II disorder; F12.91 Cannabis use, unspecified, in remission; J44.9 Chronic obstructive pulmonary disease, unspecified; F43.12 Post-traumatic stress disorder, chronic; E07.9 Disorder of thyroid, unspecified; I25.10 Atherosclerotic heart disease of native coronary artery without angina pectoris; I49.9 Cardiac arrhythmia, unspecified; K46.9 Unspecified abdominal hernia without obstruction or gangrene; M79.7 Fibromyalgia; F41.8 Other specified anxiety disorders; R56.9 Unspecified convulsions
CPT/HCPCS: 45380; 88305; J2405; J2704; J7030

== ENCOUNTER 2025-01-11 14:38 | Outpatient (CLI) | payer BC, MEDICAID, SELFPAY ==
--- NOTE | 2025-01-11 15:45 | CT_ITS ---
WS: [id number] CT ABDOMEN AND PELVIS NONCONTRAST HISTORY: recurrent inguinal hernia TECHNIQUE: Imaging performed through the abdomen and pelvis. Coronal and sagittal reformats are submitted. All CT scans at [facility] use at least one of these dose optimization techniques: automated exposure control; mA and/or kV adjustment per patient size (includes targeted exams where dose is matched to clinical indication); or iterative reconstruction. DLP: 508.81 mGy.cm COMPARISON: None available. Lower thorax: Lung bases are clear. Visualized heart is normal. No hiatal hernia. Liver: Normal size liver with decreased attenuation from hepatic steatosis. Gallbladder: Normal gallbladder. No pericholecystic fluid or cholelithiasis. No gallbladder wall thickening. Pancreas: Normal size and attenuation. Normal pancreatic duct. No pancreatitis or mass. Spleen: Normal. Adrenal glands: Normal. No mass. Right kidney: Normal size kidney with no mass or hydronephrosis. Left kidney: Normal size kidney with no mass or hydronephrosis. Aorta: Normal abdominal aorta, no aneurysm or atherosclerosis. No free fluid, intraperitoneal air or significant lymphadenopathy. GI tract: Stomach is markedly distended with oral contrast and food material. Minimal amount of contrast in the small bowel. No colon obstruction or colitis. Normal appendix. Abdominal wall: No ventral abdominal wall hernia. Pelvis: Prior hysterectomy. Urinary bladder is not distended. No free fluid or adenopathy in the pelvis. No inguinal hernias. Osseous structures: Prior L4-S1 lumbar fusion. Interbody spacers at L4-5 and L5- S1. L4-5 interbody spacer migrated posteriorly by 6.9 mm from the disc space. Migrated disc spacer was also present on the CT from 12/05/2022. CT/CT abdomen pelvis con [id number] IMPRESSION: 1. No abdominal wall hernia. 2. No inguinal hernia. 3. Hepatic steatosis. 4. Normal appendix. 5. No ascites or adenopathy.
== END 2025-01-11 14:39 | disposition home or self-care (01) ==
LOC: RAD 14:38
PROVIDERS: PCP Nurse Practitioner Family; Visit Provider Surgery
DX: K40.91 Unilateral inguinal hernia, without obstruction or gangrene, recurrent (principal); K76.0 Fatty (change of) liver, not elsewhere classified; Z90.710 Acquired absence of both cervix and uterus; M43.26 Fusion of spine, lumbar region; Z96.89 Presence of other specified functional implants
CPT/HCPCS: 74176

== ENCOUNTER 2025-03-05 07:28 | Emergency (ER) | payer MEDICAID, SELFPAY ==
--- OUTSIDE RECORDS SUMMARY | 2025-03-05 07:34 | XMS_ITS | Clinical Summary ---
Author Organization [facility] Address [address] [place] [address] Care Team Providers Care Sheet Metal Duct Installer Name Role Phone Unavailable Primary Care Provider Unavailabl e Medications albuterol sulfate HFA 90 mcg/actuation aerosol inhaler INHALE 1 PUFF BY MOUTH EVERY 6 HOURS NEEDED FOR WHEEZE 5 Active Suboxone 8-2 mg film dissolve 1/2 film UNDER THE TONGUE THREE TIMES DAILY 5 Active ondansetron (ZOFRAN ODT) 8 mg Tablet, Rapid Dissolve DISSOLVE ONE TABLET in MOUTH EVERY 8 hours NEEDED FOR NAUSEA and vomiting 5 Active pantoprazole (PROTONIX) 40 mg Tablet, Delayed Release (E.C.) Take 1 Tablet by mouth 2 times daily. 5 Active diazePAM (Valium) 5 mg tabletIndicati ons:Anxiety state Take 1 Tablet (5 mg) by mouth see administration instructions. Take 1 tablet 45-60 minutes prior to procedure and 1 tablet 15-30 minutes prior to procedure, as needed. 2 Tablet 5 Active Active Problems No known active problems Encounters Date Type Department Care Team Description 02/08/2025 External Device Data [facility] ABSTRACTION Provider, Abstract 02/02/2025 External Device Data [facility] ABSTRACTION Provider, Abstract 02/02/2025 External Device Data [facility] ABSTRACTION Provider, Abstract 02/01/[address] [facility] [address] [place] [address] Hung Mendez MD Anxiety state (Primary Dx) 01/25/2025 External Device Data [facility] ABSTRACTION Provider, Abstract 01/11/2025 External Device Data [facility] ABSTRACTION Provider, Abstract 01/11/2025 External Device Data [facility] ABSTRACTION Provider, Abstract 01/11/2025 External Device Data [facility] ABSTRACTION Provider, Abstract 01/10/[address] [facility] [address] [place] [phone] Ruth Oconnor PA New Prescription Request (Valium) 01/07/2025 11:20 AM CDT Ancillary Procedure [facility] [address] [place] [phone] Ruth Oconnor PA S/P lumbar spinal fusion 01/07/2025 10:00 AM CDT Office Visit [facility] [address] [place] [phone] Ruth Oconnor PA Neck pain (Primary Dx); S/P lumbar spinal fusion; Degenerative spondylolisthesis; Post-operative pain; Anxiety state 12/08/[address] [facility] [address] [place] [phone] Ruth Oconnor PA from Last 3 Months Social History Tobacco Use Types Packs/Day Years Used Date Smoking Tobacco: Never Assessed Comments Unknown Sex and Gender Information Value Date Recorded Sex Assigned at Not on file Legal Sex Female 11:23 AM CDT Gender Identity Not on file Sexual Orientation Not on file Last Filed Vital Signs Vital Sign Reading Time Taken Comments Blood Pressure 124/82 01/07/2025 9:59 AM CDT Pulse - - Temperature - - Respiratory Rate - - Oxygen Saturation - - Inhaled Oxygen Concentration - - Weight 74.4 kg (164 lb) 01/07/2025 9:59 AM CDT Height 154.9 cm (5' 1 ) 01/07/2025 9:59 AM CDT Body Mass Index 30.99 01/07/2025 9:59 AM CDT Plan of Treatment Upcoming Encounters Date Type Department Care Team (Late st Contact Info) Description 03/29/2025 3:50 PM GRADUATE ADVISOR Appointment [facility] [address] [place] [phone] Ruth Oconnor PA [address] [place] [address] 03/29/2025 4:30 PM GRADUATE ADVISOR Appointment [facility] [address] [place] [phone] Ruth Oconnor PA [address] [place] [address] 04/20/2025 2:20 PM GRADUATE ADVISOR Office Visit [facility] [address] [place] [address] Ruth Oconnor, KWASI [address] [place] [address] Health Maintenance Due Date Last Done Comments Pre-Diabetes and Diabetes Screening 1980 DTAP/TDAP/TD VACCINES (1 - Tdap) 09/07/1999 HEPATITIS B VACCINES (1 of 3 - 19+ 3-dose series) 05/1999 Preventative Visit-Managed Medicaid 09/07/1999 HPV/Cotest (21-29) 2001 HPV VACCINES (1 - 3-dose SCDM series) 09/07/2007 CERVICAL CANCER SCREENING 2010 HPV/Cotest (30-65) 2010 PAP SMEAR 2010 BREAST CANCER SCREENING 2020 INFLUENZA VACCINE (#1) 2024 Procedures Procedure Name Priority Date/Time Associated Diagnosis Comments XR LUMBAR SPINE 2 OR 3 VW Routine 01/07/2025 11:31 AM CDT S/P lumbar spinal fusion from Last 3 Months Results * XR LUMBAR SPINE 2 OR 3 VW (01/07/2025 11:31 AM CDT) Anatomical Region Laterality Modality Spine Computed Radiogr aphy 01/07/2025 11:3 2 AM CDT Impressions 01/10/2025 8:28 AM CDT IMPRESSION: 1. A transitional lumbosacral vertebra is labeled S1 on today's exam. 2. Posterior fusion of the lumbosacral spine L4, L5, and S1. The L4-L5 intervertebral disc spacer projects 5 mm posteriorly from the posterior wall of the L4 vertebral body. Narrative 01/10/2025 8:28 AM CDT EXAM: XR LUMBAR SPINE 2 OR 3 VW DIAGNOSIS/REASON FOR EXAM: S/P lumbar spinal fusion. DATE AND TIME: 01/07/2025, 11:31 AM. COMPARISON: None. TECHNIQUE: Upright AP and lateral views of the lumbar spine. FINDINGS: A transitional lumbosacral vertebra is present. On this exam, the transitional lumbosacral vertebra that will be labeled S1. Posterior fusion hardware transfixes L4, L5, and S1. Intervertebral disc spaces are present at L4-L5 and L5-S1. The L4-L5 intervertebral disc spacer projects approximately 5 mm posteriorly from posterior wall of the L4 vertebral body. There are postsurgical changes of the inferior pelvis. Procedure Note Hung Pedro MD - 01/10/2025 EXAM: XR LUMBAR SPINE 2 OR 3 VW DIAGNOSIS/REASON FOR EXAM: S/P lumbar spinal fusion. DATE AND TIME: 01/07/2025, 11:31 AM. COMPARISON: None. TECHNIQUE: Upright AP and lateral views of the lumbar spine. FINDINGS: A transitional lumbosacral vertebra is present. On this exam, the transitional lumbosacral vertebra that will be labeled S1. Posterior fusion hardware transfixes L4, L5, and S1. Intervertebral disc spaces are present at L4-L5 and L5-S1. The L4-L5 intervertebral disc spacer projects approximately 5 mm posteriorly from posterior wall of the L4 vertebral body. There are postsurgical changes of the inferior pelvis. IMPRESSION: 1. A transitional lumbosacral vertebra is labeled S1 on today's exam. 2. Posterior fusion of the lumbosacral spine L4, L5, and S1. The L4-L5 intervertebral disc spacer projects 5 mm posteriorly from the posterior wall of the L4 vertebral body. Ruth [facility] Final Result from Last 3 Months Insurance [facility] MEDICAID
[2025-03-05 07:38] VITALS: BP 149/73; PULSE 81; RESP 14; TEMP 36.4; O2SAT 95; BMI 31.4
[2025-03-05] MEDS: tetracaine 0.5% Op Soln 4 mL Btl 1 DROP EYE-LEFT (07:44)
--- NOTE | 2025-03-05 07:54 | W.ED.EYEPROB ---
HPI - Eye Problem General: Chief complaint: Eye Problems Stated complaint: L eye Swollen Head Pain Nausea Time Seen by Provider: 03/05/25 07:32 Source: patient Mode of arrival: ambulatory Limitations: no limitations History of Present Illness: 44-year-old female who states she has been having left eye pain since last night. She does wear contacts not currently wearing them. States the pain is sharp in nature rates it a 9 out of 10. She denies any vision changes she has had some erythema around her eye as well with swelling. She denies any headache, Related Data Home Medications ?Medication ?Instructions ?Recorded ?Confirmed buprenorphine 8 mg-naloxone 2 mg 1 film sublingual 1XD 05/05/24 01/26/25 sublingual film (Suboxone) albuterol sulfate 2.5 mg/3 mL 2.5 mg inhalation Q8H PRN 11/23/24 01/26/25 (0.083 %) solution for nebulization Shortness Of Breath Or Wheezing albuterol sulfate 90 mcg/actuation 2 puff inhalation DAILY PRN 11/23/24 01/26/25 aerosol inhaler (Ventolin HFA) Shortness Of Breath Or Wheezing Previous Rx's ?Medication ?Instructions ?Recorded nebulizer #1 ea 10/01/22 pantoprazole 40 mg tablet,delayed 40 mg PO BID 30 days #60 tabs 11/25/24 release ondansetron 8 mg disintegrating 8 mg PO Q8H PRN nausea and 12/07/24 tablet vomiting #3 tabs cephalexin 500 mg capsule 500 mg PO TID 7 days #21 caps 03/05/25 ondansetron 4 mg disintegrating 4 mg PO Q6H PRN nausea and 03/05/25 tablet vomiting #14 tabs tobramycin 0.3 % eye drops 1 drp ophthalmic (eye) Q4H 7 days 03/05/25 #5 mL Allergies Allergy/AdvReac Type Severity Reaction Status Date / Time paliperidone (From Invega) Allergy Intermediate makes her Verified 03/05/25 07:40 eyes blink extra adhesive tape Allergy ALGY-Bliste Verified 03/05/25 07:40 r Iodinated Contrast Media Allergy airway Verified 03/05/25 07:40 ziprasidone (From Geodon) AdvReac ADR-Shakine Verified 03/05/25 07:40 ss Review of Systems Eyes: Reports: eye discomfort PFSH ED PFSH: Medical History Other stimulant dependence, in remission Bipolar II disorder Other stimulant dependence, in remission Cannabis dependence, uncomplicated Chronic obstructive pulmonary disease On high dose antipsychotic drug therapy History of thyroid disorder Reports had been on medication in the past Greater trochanteric bursitis of both hips Other stimulant dependence, uncomplicated Post-traumatic stress disorder, chronic Bipolar disorder, current episode manic severe with psychotic features Surgical History Hx of bilateral inguinal hernia repair S/P cone biopsy of cervix (~2002) H/O vaginal surgery (07/18/11) Anterior colporrhaphy, Single incision sling. Performed by Dr. Zambrano and Dr. Mancini at [facility] [place], [place] H/O vaginal surgery (02/20/12) Posterior colporrhaphy. Performed by Dr. Zambrano and Dr. Mancini at [facility] [place] in [place], [place] H/O total vaginal hysterectomy (11/01/14) TVH with uterosacral ligament suspension. Performed by Dr. Mancini at [facility] [place] in [place], [place] Vaginal cuff dehiscence (05/01/15) Repair of vaginal cuff dehiscence. DX: Vaginal cuff dehiscence with small bowel evisceration into vagina. Performed by Dr. Mancini at [facility] in [place], [place]. History of umbilical hernia repair (09/22/19) Performed by Dr. Chiu at [facility] in [place], [place] Family History Brother Anesthesia complication nausea Grandmother Cancer esophageal Other Diabetes Social History Smoking and tobacco/nicotine status: never used tobacco/nicotine Second hand smoke exposure: No Alcohol intake: current Alcohol intake frequency: other Substance/Drug Use: current Other substance/drug use details: has medical card Lives independently: Yes Household members: children Marital status: Single service: No Current occupational status: unemployed Current gender identity: Female Special kimberly needs: No Agree to transfusion: Yes Physical Exam Const: COMMON NORMALS: no acute distress, patient oriented x3 and healthy appearing HENMT: COMMON NORMALS: normocephalic and atraumatic HEAD & SCALP: normocephalic and atraumatic Eye: COMMON NORMALS: Equal, round and reactive pupils present and EOMs intact bilaterally PUPIL: Yes Equal, round and reactive pupils present OTHER: Erythema noted to left eye under fluorescein stain does have a corneal ulcer Neck/C-Spine: COMMON NORMALS: full ROM and supple Chest: COMMONS NORMALS: normal inspection of the chest Resp: COMMON NORMALS: normal respiratory effort Cardio: COMMON NORMALS: regular rate, regular rhythm and No murmurs present (Cardio) RATE: regular rate RHYTHM: regular rhythm Extremity: COMMON NORMALS: normal to inspection and full ROM Neuro: COMMON NORMALS: patient oriented x3, moves all extremities and no focal motor deficits Psych: COMMON NORMALS: mental status grossly normal, Normal thought process present and cooperative THOUGHT PROCESS: Normal thought process present Skin: COMMON NORMALS: no rashes or lesions noted and no wounds GENERAL SKIN EXAM: no rashes or lesions noted Course Vital Signs: Vital signs: Vital Signs Temperature 97.6 F 03/05/25 07:38 Pulse Rate 81 03/05/25 07:38 Respiratory Rate 14 03/05/25 07:38 Blood Pressure 149/73 03/05/25 07:38 Pulse Oximetry 95 03/05/25 07:38 MDM - Eye Problem Medical Decision Making Patient presents for left eye pain differential includes corneal ulcer, corneal abrasion, conjunctivitis, acute angle-closure. Patient has no signs of acute angle glaucoma. Under fluorescein she does have a corneal ulcer. She has some erythema around her eyelid no signs of orbital cellulitis. Instructed her to not wear her contacts we will place her on tobramycin eyedrops along with Keflex she is to follow-up with ophthalmology she is return if worsening she understands agrees to plan. No radiology studies performed this visit Discharge Plan Discharge Patient Disposition: Home Clinical Impression: Corneal ulcer Condition: Stable Prescriptions: New cephalexin 500 mg capsule 500 mg PO TID 7 Days Qty: 21 0RF ondansetron 4 mg tablet,disintegrating 4 mg PO Q6H PRN (Reason: nausea and vomiting) Qty: 14 0RF tobramycin 0.3 % drops 1 drp ophthalmic (eye) Q4H 7 Days Qty: 5 0RF No Action ondansetron 8 mg tablet,disintegrating 8 mg PO Q8H PRN (Reason: nausea and vomiting) Qty: 3 0RF (DME) nebulizer See Rx Instructions .Route .MEDSUPPLY Qty: 1 0RF Rx Instructions: As directed buprenorphine-naloxone [Suboxone] 8-2 mg film 1 film sublingual 1XD albuterol sulfate 2.5 mg /3 mL (0.083 %) solution for nebulization 2.5 mg inhalation Q8H PRN (Reason: Shortness Of Breath Or Wheezing) Rx Instructions: inhale THE contents of one vial via nebulizer EVERY 8 HOURS NEEDED FOR SHORTNESS OF BREATH OR wheezing albuterol sulfate [Ventolin HFA] 90 mcg/actuation HFA aerosol inhaler 2 puff inhalation DAILY PRN (Reason: Shortness Of Breath Or Wheezing) Rx Instructions: inhale TWO puffs BY MOUTH FOUR TIMES DAILY NEEDED FOR SHORTNESS OF BREATH OR wheezing pantoprazole 40 mg tablet,delayed release (DR/EC) 40 mg PO BID 30 Days Qty: 60 2RF Discharge Orders: Discharge ED (Routine); Ordered 03/05/25 Ordered By: Marianna Mcallister Referrals: [facility] [Outside] - 1-3 days Corrine Greenwood FNP [Primary Care Provider, Primary Care Provider] Discharge Diet: Advance as tolerated Discharge Activity: Resume usual activity Patient Instructions: Corneal Ulcer (ED) Print Language: Irish Coding Level of Care Code ED [employer] for Marzena Tong
[2025-03-05] MEDS: HYDROcodone-acetaminophen 5-325 mg Tablet 1 TAB PO (07:58)
[2025-03-05] MEDS: ondansetron hcl ODT 4 mg Tab PO (07:58)
[2025-03-05 08:03] VITALS: BP 144/78; PULSE 85; O2SAT 95
--- NOTE | 2025-03-07 13:00 | DCPLANNER ---
faxed outpatient referral to dr sujit wills
== END 2025-03-05 08:05 | disposition home or self-care (01) ==
PROVIDERS: Emergency Provider Emergency Medicine; PCP Nurse Practitioner Family
DX: H16.002 Unspecified corneal ulcer, left eye (principal)
CPT/HCPCS: 99283; J9999; Q0162